=== PATIENT | female | born 1965 | race Caucasian/White ===

== ENCOUNTER → 2017-01-28 | Outpatient (CLI) | payer OTHER ==
[~2017-01-28] MED LIST: ANAS1TAB6 PO; CALC1TAB27 PO; CHOL2000 PO; CLC100 PO; COLLPOW10 PO; CORTISONE; Collagen PO; FERR1TAB23 PO; MILK150C PO; MULT-506 PO; OXYC7.5T65 PO
[2017-01-28 15:37] LABS: BASO % 0.6 %; BASO ABS # 0.04 K/uL (0-0.2); COMPLETE YES; EOS % 6.8 %; HEMATOCRIT 36.6 % (37-47); IG% 0.2 %; LYMPH % 40.8 %; LYMPH ABS # 2.64 K/uL (1.2-3.4); MEAN CORPUSCULAR HEMOGLOBIN 31.9 pg (25-34); MEAN CORPUSCULAR HGB CONC 34.7 g/dl (32-36); MEAN PLATELET VOLUME 9.2 fL (7.4-10.4); MONO % 6.2 %; NEUT % 45.4 %; PLATELET COUNT 230 K/uL (130-400); RED BLOOD COUNT 3.98 M/uL (4.2-5.4); WHITE BLOOD COUNT 6.47 K/uL (4.8-10.8)
--- NOTE | 2017-01-28 15:41 | DIAGNOSTIC IMAGING REPORT ---
L-SPINE MIN 4 VIEWS ROUTINE CLINICAL HISTORY: Chronic back pain. COMPARISON: CT of the abdomen and pelvis January 03, 2011. FINDINGS: A left renal artery stent is incidentally noted. Alignment of the lumbar spine is anatomic. Vertebral body heights are maintained. There is mild disc space narrowing at L5-S1. IMPRESSION: 1. No lumbar spine fracture or subluxation. 2. Mild multilevel degenerative disc disease and facet arthrosis, most pronounced at L5-S1. Electronically signed by: Epifanio Mims M.D. 01/28/2017 3:39 PM Dictated Date/Time: 01/28/2017 3:38 PM
[2017-01-28 16:02] LABS: ALT/SGPT 18 U/L (12-78); BLOOD UREA NITROGEN 19 mg/dl (7-18); BUN/CREATININE RATIO 17.5 (10-20); CALCIUM 9.4 mg/dl (8.5-10.1); CARBON DIOXIDE 27 mmol/L (21-32); CHLORIDE 107 mmol/L (98-107); GLUCOSE 93 mg/dl (70-99); POTASSIUM 3.7 mmol/L (3.5-5.1); SODIUM 143 mmol/L (136-145)
[2017-01-28 16:13] LABS: ALB/GLOB RATIO 1.1 (0.9-2); ALKALINE PHOSPHATASE 43 U/L (45-117); AST/SGOT 16 U/L (15-37); THYROID STIMULATING HORMONE 0.791 uIu/ml (0.300-4.500)
== END | disposition home or self-care (01) ==
LOC: C.RAD1850 14:56
PROVIDERS: ATTEND Family Medicine
DX: M54.9 Dorsalgia, unspecified (principal)

== ENCOUNTER → 2017-02-02 | Outpatient (CLI) | payer OTHER ==
--- NOTE | 2017-02-02 16:46 | MAMMOGRAPHY REPORT ---
BILATERAL DIGITAL DIAGNOSTIC MAMMOGRAM TOMOSYNTHESIS WITH CAD AND TARGETED BILATERAL ULTRASOUND: 01/23 CLINICAL HISTORY: 51-year-old woman presents for bilateral screening mammography and also new episod es of right nipple discharge. The patient reported a whitish/milky discharge she was able to elicit from the right nipple approximately 3-4 weeks ago, and then a second similar episode. No new palpa ble mass, or skin changes. No family history of breast cancer. TECHNIQUE: Bilateral CC and MLO to the digital and tomosynthesis images, spot magnification right CC and ML, spot compression 2-D digital and tomosynthesis left MLO views were obtained. Current study was also evaluated with a Computer Aided Detection (CAD) system. COMPARISON: Comparison is made to exams dated: 07/07/2013 ultrasound and 06/27/2013 mammogram - [facility]. BREAST COMPOSITION: The tissue of both breasts is extremely dense, which lowers the sensitivity of mammography. FINDINGS: There is a stable 2 cm circumscribed mass with associated internal layering calcification in the lower inner quadrant of the left breast. There are diffuse bilateral punctate microcalcific ations, without evidence of a focal suspicious grouping or cluster. There is spiculation and eric ectural distortion in the far superior, far posterior left breast on the MLO view, for which an jeuss tional spot compression MLO view with tomosynthesis images was performed. On this additional view, there is a spiculated mass measuring approximately 14 x 12 mm. Further evaluation with ultrasound w as performed. Several morphologically normal lobulated and reniform shaped lucent centered lymph no bill are seen on the spot compression MLO view that appear morphologically normal. Real-time high-resolution ultrasound was performed in the periareolar and retroareolar right breast. There is evidence of mild duct ectasia, but no definite suspicious solid or cystic mass in the per iareolar or retroareolar right breast. No drainable fluid collection is identified. In the left 1:00 breast, 15-20 cm from the nipple, there is a spiculated hypoechoic shadowing mass w ith associated architectural distortion, measuring approximately 8.3 x 10.6 mm. Given the ill-defin ed nature accurate measurements are difficult to obtain. Several morphologically normal lymph nodes are seen in the adjacent left axillary tail and left axilla, without evidence of suspicious adenopa thy. Additional scanning closer to the nipple in the 1:00 radian of the left breast demonstrates an other ill-defined hypoechoic shadowing area, approximately 9 cm from the nipple. However, all of th e dense glandular tissue throughout the visualized left breast on ultrasound demonstrates ill-define d shadowing areas. This lesion partially effaces in the radial plane and IM unsure if this is an ar tifactual finding. Therefore, pending pathology results, an MRI may be needed. IMPRESSION: ACR BI-RADS CATEGORY 4C: MODERATE SUSPICION FOR MALIGNANCY, TARGETED ULTRASOUND ACR BI- RADS CATEGORY 4C: MODERATE SUSPICION FOR MALIGNANCY 1. There is no obvious mammographic or sonographic abnormality to explain the nonspontaneous thick, milky right nipple discharge. Surgical consultation for sampling of the fluid may be useful. Alte rnatively, a breast MRI could be useful for further characterization and to assess for any possible intraductal mass but is not mammographically or sonographically evident. 2. There is a spiculated mass with associated architectural distortion in the 1:00 far posterior le ft breast that is suspicious for malignancy. Definitive characterization with an ultrasound guided core needle biopsy is recommended. 3. No suspicious left axillary lymphadenopathy is identified. 4. Another ill-defined hypoechoic shadowing area is seen in the 1:00 left breast approximately 9 cm from the nipple that is indeterminate. Pending pathology results in the 1:00 breast, 15 cm from th e nipple, if this lesion proves to be malignant, a bilateral breast MRI is recommended given the torie hnically difficult ultrasound and extremely dense breasts mammographically. These results and recommendations were discussed with the patient at the time of the exam. She tent atively schedule the left breast biopsy prior to leaving our department. Approximately 10% of breast cancers are not detected with mammography. A negative mammographic repor t should not delay biopsy if a clinically suggestive mass is present. Cynthia Tristan M.D. ay/:02/02/2017 15:30:49 Bee Robber: Renee PRITCHARD)(M), [facility] letter sent: Abnormal 4/5 BI-RADS Code: ACR BI-RADS Category 4C: Moderate Suspicion For Malignancy Ultrasound BI-RADS: ACR BI -RADS Category 4C: Moderate Suspicion For Malignancy
== END | disposition home or self-care (01) ==
LOC: C.MAMM 14:06
PROVIDERS: ATTEND Family Medicine
DX: N64.52 Nipple discharge (principal); N63 Unspecified lump in breast

== ENCOUNTER → 2017-02-03 | Outpatient (CLI) | payer OTHER ==
--- NOTE | 2017-02-03 15:26 | Discharge Instructions ---
Discharge Instructions Procedure Procedure Date: Feb 03, 2017. Reason for visit: Left Mass. Discharge Discharge Date: Feb 03, 2017. Discharge Diagnosis: post left breast ultrasound guided core biopsy Instructions Activity Recommendations: Additional Limitations (see below) Return to School/Work: no limitations Recommended Home Diet: No Limitations Provider Instructions: ACTIVITY RECOMMENDATIONS: * No lifting, pushing, pulling or exercising the affected side for three days. RETURN TO SCHOOL/WORK: * You may return to work/school after the procedure, but do not perform any strenuous activities for 24 to 48 hours. MEDICATIONS: * Tylenol (two 325 mg) every four to six hours if needed for mild pain (if not allergic to Tylenol). DIET: * Resume previous diet. SPECIAL CARE INSTRUCTIONS: * Keep biopsy site dry for 24 hours. May shower after 24 hours, but do not soak (bathe) incision. * May remove Tegaderm (plastic patch) tomorrow AFTER showering. * Leave the steri-strips on for one week. Allow the steri-strips to fall off by themselves. If not off after one week, you may remove them. You may place a Bandaid crosswise over the strips, if desired. * Apply ice 10 minutes on and 10 minutes off as needed. * Wear a bra at bedtime to sleep more comfortably for 2-3 days. * Your referring physician should have the results after approximately 5 to 7 business days. * Call for unusual bleeding, fever, drainage, etc or if you have any questions call [phone] during normal business hours or after hours call Dr Tristan, . FOLLOW UP VISIT: Follow-up with Referring Physician as scheduled. Allergies Coded Allergies: No Known Allergies (Unverified , 12/16/10) hCerelle Dotson Recommendations: Call your doctor if: * Temperature above 101 degrees * Pain not relieved by pain medicine ordered * There is increased drainage or redness from any incision * You have any unanswered questions or concerns. Your Doctors Instructions noted above were prepared by provider Cynthia Tristan. Patient Signature Section: Patient Instructions Signature Page Sona Mitchell Patient (or Guardian) Signature/Date: I have read and understand the instructions given to me by my caregivers. Caregiver/RN/Doctor Signature/Date: The above-named patient and/or guardian has received patient instructions on this date. + Original Patient Signature Page (only) stays with chart. Please make copy for patient.
--- NOTE | 2017-02-03 16:06 | MAMMOGRAPHY REPORT ---
THIS REPORT HAS BEEN AMENDED. ULTRASOUND GUIDED BIOPSY LEFT BREAST: 02/03/2017 CLINICAL HISTORY: Ill-defined spiculated mass in the left axillary tail. Patient presents for ultra sound-guided core needle biopsy. COMPARISON: Comparison is made to exams dated: 02/02/2017 ultrasound, 02/02/2017 mammogram, 07/07/2013 ultrasound, and 06/27/2013 mammogram - [facility]. PATIENT CONSENT: The procedure, risks and benefits were discussed with the patient and informed writ ten consent was obtained. Specific risks to this procedure include: bleeding, infection, puncture of adjacent structure, nontarget biopsy, sampling error and medication reaction. PROCEDURE DESCRIPTION: A time out was performed and the left breast was agreed as the site of biopsy . The skin was prepped and draped in the usual sterile fashion. The ill-defined spiculated shadowing mass in the 1:00 left breast/axillary tail was chosen as the target for biopsy. Subcutaneous and in traparenchymal 1% buffered lidocaine, with and without epinephrine, was administered as local anesth esia. A skin incision was made. Through the incision, 5 samples were taken with a 14 gauge Achieve biopsy device. A metallic marker was placed at the biopsy site. Hemostasis was achieved after manual compression. The patient tolerated the procedure well and there was no immediate complication. The samples were sent to pathology in an appropriately labeled container. Post procedure left CC, XCCL and ML views were obtained. A new ribbon-shaped metallic biopsy marker is seen in the axillary tail of the left breast, aligning with the spiculated mammographic mass in question. No significant post biopsy hematoma is seen. IMPRESSION: ULTRASOUND GUIDED BIOPSY Status post ultrasound guided core needle biopsy of an ill-defined spiculated shadowing mass in the left axillary tail/1:00 breast, with biopsy marker placed at the site. The patient will receive notification of the biopsy results from her referring physician. Cynthia Tristan M.D. ay/:02/03/2017 15:45:46 Grant Specialist: Lucia EARLY (R)(Sasha), [facility] AMENDMENT: 02/09/2017 Cynthia Tristan M.D. Pathology results from the ultrasound guided core needle biopsy of a cyst this shows spiculated shad owing mass in the 1:00 left breast yielded infiltrating ductal carcinoma, grade 1/3. No perineural or lymph vascular space invasion identified. Estrogen receptor positive (100%, strong) and progeste arabella receptor positive (5%, weak). The pathology results are concordant with the imaging appearance . Given the extremely dense breasts, and recent new finding of right sided/contralateral nipple dis charge, in which diagnostic workup failed to identify any abnormality mammographically or sonographi kisha, recommend bilateral breast MRI with contrast prior to definitive treatment. These recommenda tions were discussed with Dr. Flanagan at 3:40 PM on 02/09/2017.
--- NOTE | 2017-02-03 16:06 | MAMMOGRAPHY REPORT ---
UNILATERAL LEFT DIGITAL DIAGNOSTIC MAMMOGRAM TOMOSYNTHESIS: 02/03/2017 CLINICAL HISTORY: Status post ultrasound-guided core needle biopsy of a suspicious spiculated mass i n the left axillary tail/1:00 axis. Please refer to the report from left breast ultrasound guided core biopsy performed at the same time for full detail. IMPRESSION: POST PROCEDURE IMAGING FOR MARKER PLACEMENT Please refer to the report from left breast ultrasound guided core biopsy performed at the same time for full detail. Approximately 10% of breast cancers are not detected with mammography. A negative mammographic repor t should not delay biopsy if a clinically suggestive mass is present. Cynthia Tristan M.D. ay/:02/03/2017 15:27:50 Helicopter Pilot Instructor: Lucia EARLY(Mag)(Sasha), [facility] BI-RADS Code: Post Procedure Imaging For Marker Placement
== END | disposition home or self-care (01) ==
LOC: C.MAMM 14:18
PROVIDERS: ATTEND Family Medicine
DX: N63 Unspecified lump in breast (principal); C50.912 Malignant neoplasm of unspecified site of left female breast

== ENCOUNTER → 2017-02-19 | Outpatient (CLI) | payer OTHER ==
[~2017-02-19] MED LIST changes: +GADAVIST IV PRN
--- NOTE | 2017-02-22 12:25 | MAMMOGRAPHY REPORT ---
BREAST MRI OF BOTH BREASTS : 02/19/2017 CLINICAL HISTORY: Recent ultrasound-guided biopsy of a left 1:00 breast mass, with pathology yieldin g IDC grade 1. The patient also reported milky right nipple discharge during a recent diagnostic wo rkup. COMPARISON: Comparison is made to exams dated: 02/03/2017 mammogram, 02/03/2017 ultrasound biopsy, 08/2017 ultrasound, 02/02/2017 mammogram, 07/07/2013 ultrasound, and 06/27/2013 mammogram - [facility]. Technique: The patient was placed prone in a dedicated breast imaging coil. Precontrast axial T1-we ighted, axial T2-weighted fat saturation, and axial T1-weighted fat saturation images were obtained. After the administration of 6.5 mL of Gadavist IV contrast, sequential T1-weighted fat saturation images were obtained. Subtraction images were obtained of the dynamic contrast enhanced sequences, and 3-D reformations were performed. The [employer] software was used for kinetic analysis. Findings: There is moderate background parenchymal enhancement bilaterally, which reduces the sensitivity of t he exam. A subtle ill-defined, minimally enhancing, spiculated mass is seen within the left upper o uter quadrant posterior breast/axillary tail region, with clip artifact seen within the mass. The m ass is ill-defined and difficult to measure but measures approximately 1.5 x 1.6 cm (series 6 images 15 and 16, series 501 image 43). This is consistent with the recent biopsy proven malignancy. The remainder of both breasts demonstrate no suspicious enhancing masses or areas of abnormal non-ma ss enhancement. There are multiple foci of enhancement seen scattered within bilateral breasts, whi ch are considered benign given the multiplicity and bilaterality and likely represent background par enchymal enhancement. There are multiple T2 hyperintense, nonenhancing masses seen within bilateral breasts, consistent with cysts, the largest measuring 2.2 cm in the left lower inner quadrant. The re is T1 hyperintense material seen within some of the ducts within the right breast, predominantly inferiorly, which likely represents proteinaceous material. Some scattered ducts within the left br east also demonstrate T1 hyperintense proteinaceous material. No clear enhancing intraductal mass o r other etiology for right milky nipple discharge is evident. There is no evidence of axillary adenopathy. The chest wall structures are negative. Visualized ex tramammary soft tissues are grossly unremarkable. IMPRESSION: ACR BI-RADS CATEGORY 6: KNOWN BIOPSY PROVEN MALIGNANCY 1. Ill-defined, minimally enhancing spiculated 1.6 cm mass in the left posterior upper outer quadra nt/axillary tail region, consistent with biopsy-proven malignancy. Appropriate clinical action shou ld be taken. 2. No MRI evidence of malignancy elsewhere in either breast. 3. No clear enhancing intraductal mass or other etiology for the right milky nipple discharge is ev ident. Recommend clinical follow-up. Ilda Greenwood M.D. ah/:02/21/2017 11:22:21 Post Acute Care Nurse: photovoltaic installation technician, [facility] BI-RADS Code: ACR BI-RADS Category 6: Known Biopsy Proven Malignancy
== END | disposition home or self-care (01) ==
LOC: C.MRI 09:22
PROVIDERS: ATTEND Family Medicine
DX: C50.912 Malignant neoplasm of unspecified site of left female breast (principal); N64.52 Nipple discharge

== ENCOUNTER → 2017-03-18 | Outpatient (CLI) | payer OTHER ==
[~2017-03-18] MED LIST changes: -GADAVIST IV PRN
[2017-03-18 12:06] LABS: HEMATOCRIT 38.7 % (37-47); MEAN CELL VOLUME 95.1 fL (80-100); MEAN CORPUSCULAR HEMOGLOBIN 32.2 pg (25-34); MEAN CORPUSCULAR HGB CONC 33.9 g/dl (32-36); MEAN PLATELET VOLUME 9.1 fL (7.4-10.4); PLATELET COUNT 283 K/uL (130-400); RED BLOOD COUNT 4.07 M/uL (4.2-5.4); WHITE BLOOD COUNT 6.17 K/uL (4.8-10.8)
[2017-03-18 12:09] LABS: BLOOD UREA NITROGEN 15 mg/dl (7-18); BUN/CREATININE RATIO 14.6 (10-20); CARBON DIOXIDE 28 mmol/L (21-32); CHLORIDE 105 mmol/L (98-107); GLUCOSE 96 mg/dl (70-99); POTASSIUM 3.9 mmol/L (3.5-5.1); SODIUM 140 mmol/L (136-145)
[2017-03-18 12:10] LABS: PHOSPHORUS 2.9 mg/dl (2.5-4.9)
[2017-03-18 12:11] LABS: CALCIUM 9.7 mg/dl (8.5-10.1)
[2017-03-18 13:07] LABS: URINE APPEARANCE CLEAR (CLEAR); URINE BILIRUBIN NEG (NEG); URINE COLOR YELLOW; URINE NITRITE NEG (NEG); URINE PH 6.5 (4.5-7.5); URINE SPECIFIC GRAVITY 1.008 (1.000-1.030); UROBILINOGEN NEG (NEG)
[2017-03-18 13:12] LABS: MANUAL MICROSCOPIC REQUIRED? NO; REVIEW REQ? NO
[2017-03-18 13:30] LABS: URINE TOTAL PROTEIN < 5.0 mg/dl (0-11.9)
== END | disposition home or self-care (01) ==
LOC: C.LAB1850 10:21
PROVIDERS: ATTEND Internal Medicine Nephrology
DX: I77.73 Dissection of renal artery (principal); N18.3 Chronic kidney disease, stage 3 (moderate)

== ENCOUNTER → 2017-07-06 | Outpatient (CLI) | payer OTHER ==
[~2017-07-06] MED LIST changes: -CLC100 PO; -OXYC7.5T65 PO
[2017-07-06 14:25] VITALS: BP 104/67; PULSE 70; TEMP 36.9; O2SAT 95
--- NOTE | 2017-07-06 15:53 | Radiation Oncology Follow-Up ---
Radiation Oncology Follow-Up Date of Visit Jul 06, 2017. Reason For Visit One-month follow-up in cancer survivorship care plan Radiation Completion Date Hypo - 06/04/17 Diagnosis (1) Breast cancer Status: Acute Onset Date: 02/03/2017 Histology Subtype: ductal Stage: l (A) Permanent Comment: Development of a white nipple discharge on the right breast Status post abnormal left breast mammogram 02/02/2017 Status post core needle biopsies 02/03/2017 revealing invasive ductal carcinoma grade 1 Estrogen receptor was positive, progesterone receptor positive, and HER-2/karen negative Status post partial mastectomy and sentinel lymph node biopsy 02/26/2017 Stage pT1c pN0 positive lateral deep margin Status post reexcision 03/18/2017, benign Oncotype DX score of 16 Status post completion of radiation therapy 06/04/2017. She received 5130 cGy utilizing hypo-fractionation. Last Edited By: Tamika Vera on Jun 10, 2017 10:32 History of Present Illness Ms. Mitchell is a 52-year-old perimenopausal female with a previous history of nipple discharge from her right breast to more recently presented with right breast nipple discharge again. The patient underwent a bilateral digital mammogram with targeted ultrasound on 02/02/2017 which revealed no evidence of disease in the right breast but did reveal a spiculated mass with associated architectural distortion in the 1 o'clock position of the left breast suspicious for malignancy; ultrasonography did confirm an ill-defined hypoechoic shadowing area seen in the left breast approximately 9 cm from the nipple that is indeterminate. The patient underwent an ultrasound-guided core biopsy of the left breast 1:00 lesion on 02/03/2017 and pathology revealed invasive ductal carcinoma that was grade 1 with no evidence of perineural invasion or lymphovascular space invasion; the tumor was estrogen receptor positive, progesterone receptor positive and HER-2 negative. The patient was seen by Dr. Farhat Hong from breast surgery who discussed treatment options including mastectomy and lumpectomy/SLN. The patient elected for a lumpectomy and sentinel lymph node biopsy with Dr. Farhat Hong. 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 The tumor measured 2.0 cm in the greatest dimension. The lateral deep margin was positive for invasive carcinoma and negative for DCIS in general. 3 sentinel lymph nodes were removed and negative for metastatic carcinoma. Dr. Hong brought the patient back to the operating room on 03/18/2017 to obtain negative margins. Pathology confirmed no evidence of residual disease and changes consistent with previous biopsy confirming negative margins in general. The patient did have an Oncotype DX study sent on her surgical specimen and the recurrence score was 16 placing her in the low risk category. The patient was seen in consultation by Dr. Tushar Barron from medical oncology who discussed and recommended anti-hormonal therapy alone. The patient has agreed to undergo anti-hormonal therapy. We are now seeing the patient in consultation to discuss the role of radiation therapy. In general, the patient is doing relatively well. The patient has no significant complaints. She underwent a CT simulation. She was found to be a candidate for hypo- fractionation. Radiation was completed 06/04/2017. She received 5130 cGy. Interim History She's been doing well over the past month. Skin irritation steadily improved. She's been seen by medical oncology and was started on antiestrogen therapy. She does have a side effect of joint pain and hot flashes. She is noted no masses on her breast. She has no tenderness and no change of the axilla. Allergies Coded Allergies: Morphine (Verified Allergy, Mild, GI SYMPTOMS - nausea, 04/14/17) Home Medications Scheduled Anastrozole (Anastrozole), 1 TAB PO DAILY Dcixukv-Dntxgmeca-Bbnc (Calcium Magnesium & Zinc), 1 TAB PO DAILY Cholecalciferol (Vitamin D3), 1 CAP PO DAILY Collagen Hydrolysate (Bovine) (Collagen Hydrolysate), 1 TSP PO DAILY Ferrous Sulfate (Iron), 1 TAB PO DAILY Milk Thistle (Silybum Marianum (Milk Thistle), 1 CAP PO DAILY Multivitamin (Multivitamin), 1 TAB PO DAILY [Collagen ], 2 TAB PO HS Review of Systems Gastrointestinal: Symptoms: WNL Oral: Symptoms: No Problems Respiratory: Symptoms: WNL Urinary: Symptoms: WNL Skin: Symptoms: No Problems Other Skin Symptoms: Reports harder lump under scar area Breast: Right Upper Arm Measurement: 27.0 Right Mid Arm Measurement: 23.1 Right Wrist Measurement: 15.5 Left Upper Arm Measurement: 28.4 Left Mid Arm Measurement: 23.0 Left Wrist Measurement: 15.5 Arm Dominence: Right Additional Notes: She completed a distress management report and answered "no" to all questions. Physical Exam Vital Signs Date Time Temp Pulse Resp B/P (MAP) Pulse Ox O2 Delivery O2 Flow Rate FiO2 07/06/17 14:25 36.9 70 16 104/67 95 Fatigue: None General Appearance: no apparent distress Eyes: normal inspection, PERRL ENT: normal ENT inspection, hearing grossly normal Neck: no adenopathy, thyroid normal Respiratory/Chest: lungs clear, no respiratory distress, no accessory muscle use Breast: Breast examination reveals well-healed incisions of the left breast. There are no masses or tenderness and no axillary adenopathy. There is mild dryness of the skin generally. She has no skin retractions or nipple changes. Using the [place] score cosmesis she has a in excellent outcome. The right breast showed no masses or tenderness and no axillary adenopathy. Cardiovascular: regular rate, rhythm, no gallop, no murmur Extremities: no pedal edema Neurologic/Psychiatric: no motor/sensory deficits, alert, normal mood/affect Skin: warm/dry Assessment & Plan Plan: She was seen and examined by Dr. Celestin. Continue regular follow-up with Dr. Hong, Dr. Barron, and her primary care physician. She continues on the antiestrogen therapy. Mammography was scheduled for the left breast in 2 months and then bilateral mammography in 8 months. We discussed that the easily digital diagnostic mammograms. She'll have imaging of the left breast every 6 months for 2 years. We completed a cancer survivorship care plan. A copy of the document was given to the patient. We asked her to return to our office in 6 months. She may call if she has any questions or concerns in the interim. Assessment & Plan (Attending) ADDENDUM: I agree with note created by Tamika Vera PA-C. I reviewed the patient's chart and information with her. I have examined and evaluated the patient. I reviewed relevant clinical information and answered the patient's and /or family's questions. BINDER TECHNICIAN Total Time In Follow-Up I spent 20 minutes speaking to the patient performing examination. I spent 20 minutes reviewing information, preparing the survivorship document, and completing this note. Total Time (Attending) In Follow-Up I spent 15 minutes examining and counseling the patient. BINDER TECHNICIAN Copy To Farhat Hong M.D.; Tushar Barron MD; Yina Flanagan, Problem Qualifiers (1) Breast cancer: Breast location: upper outer quadrant of breast Estrogen receptor status: positive Patient sex: female Laterality: left Qualified Codes: C50.412 - Malignant neoplasm of upper-outer quadrant of left female breast; Z17.0 - Estrogen receptor positive status [ER+]
== END | disposition home or self-care (01) ==
LOC: C.ONC 14:22
PROVIDERS: ATTEND Physician Assistant Medical
DX: Z08 Encounter for follow-up examination after completed treatment for malignant neoplasm (principal); Z92.3 Personal history of irradiation; Z85.3 Personal history of malignant neoplasm of breast

== ENCOUNTER → 2017-09-21 | Outpatient (CLI) | payer OTHER ==
[~2017-09-21] MED LIST changes: -CORTISONE
--- NOTE | 2017-09-22 13:44 | MAMMOGRAPHY REPORT ---
UNILATERAL LEFT DIGITAL DIAGNOSTIC MAMMOGRAM TOMOSYNTHESIS WITH CAD AND TARGETED LEFT ULTRASOUND: CLINICAL HISTORY: 52-year-old woman with a personal history of left breast cancer status post lumpect jim and radiation therapy. She presents for first follow-up in the left breast after treatment to [facility]. Also patient reports a ridge of thickening along the lower inner quadrant of t he left breast and also sometimes abnormal sensation in the left nipple. TECHNIQUE: Left breast tomosynthesis in addition to standard 2D mammography was performed. Current st udy was also evaluated with a Computer Aided Detection (CAD) system. COMPARISON: Comparison is made to exams dated: 02/19/2017 breast MRI, 02/03/2017 mammogram, 02/03/2017 ultrasound biopsy, 02/02/2017 mammogram, and 06/27/2013 mammogram - [facility]. BREAST COMPOSITION: The tissue of the left breast is extremely dense, which lowers the sensitivity o f mammography. FINDINGS: There is expected architectural distortion in the upper outer far posterior left breast, at the site of prior lumpectomy. There is also mild diffuse skin thickening and trabecular edema of th e left breast, likely related to prior radiation therapy. The previously observed spiculated mass an d associated biopsy marker clip is no longer present consistent with surgical excision. No new suspi cious masses, unexpected areas of distortion or new suspicious macrocalcifications are identified in left breast. Targeted ultrasound was performed in the lower inner quadrant of the left breast in the approximate 7 :00 axes to assess the area of palpable ridge pointed out by the patient. There is diffuse skin thic kening throughout the 7:00 axes of the left breast, with focal skin thickness measuring up to 4.7 mm. A benign anechoic cyst is identified in the 7:00 breast, 4 cm from the nipple, measuring 2.1 x 0.8 x 1.4 cm, and there is an adjacent oval circumscribed hypoechoic solid versus cystic mass slightly de eper than the cyst measuring 8.6 x 6.1 mm. Although this has a benign sonographic appearance, given that it is newly visualized on ultrasound, and a short interval follow-up targeted left breast ultras ound in the 7:00 axis is recommended at time of next follow-up in 6 months. IMPRESSION: ACR-BI-RADS CATEGORY 3: PROBABLY BENIGN, TARGETED ULTRASOUND ACR-BI-RADS CATEGORY 3: PRO BABLY BENIGN Expected post treatment changes in the left breast, without definite mammographic evidence of maligna ncy. A benign-appearing circumscribed subcentimeter solid versus cystic mass is incidentally identif ied in the 7:00 left breast on ultrasound, for which a repeat targeted ultrasound is recommended to e nsure stability in 6 months. Overall, recommend repeat left diagnostic tomosynthesis mammograms and ultrasound in 6 months to ensu re longer stability after treatment. Annual right mammography will also be due at that time. Would also recommend continued annual surveillance with breast MRI given the personal history of left breas t cancer and extremely dense breast parenchyma, also due in January 2018. Approximately 10% of breast cancers are not detected with mammography. A negative mammographic report should not delay biopsy if a clinically suggestive mass is present. Cynthia Tristan M.D. ay/:09/21/2017 14:57:21 Turbine Mechanic: Amanda PRITCHARD)(Sasha), [facility] letter sent: Follow Up Recommended 3 BI-RADS Code: ACR-BI-RADS Category 3: Probably Benign Ultrasound BI-RADS: ACR-BI-RADS Category 3: Pr obably Benign
== END | disposition home or self-care (01) ==
LOC: C.MAMM 14:05
PROVIDERS: ATTEND Physician Assistant Medical
DX: N63.20 Unspecified lump in the left breast, unspecified quadrant (principal); Z85.3 Personal history of malignant neoplasm of breast; Z98.890 Other specified postprocedural states; Z92.3 Personal history of irradiation; Z08 Encounter for follow-up examination after completed treatment for malignant neoplasm

== ENCOUNTER → 2017-09-22 | Outpatient (CLI) | payer OTHER ==
[2017-09-22 12:15] LABS: HEMATOCRIT 39.9 % (37-47); MEAN CELL VOLUME 94.8 fL (80-100); MEAN CORPUSCULAR HEMOGLOBIN 32.1 pg (25-34); MEAN CORPUSCULAR HGB CONC 33.8 g/dl (32-36); MEAN PLATELET VOLUME 9.6 fL (7.4-10.4); PLATELET COUNT 224 K/uL (130-400); RED BLOOD COUNT 4.21 M/uL (4.2-5.4)
[2017-09-22 12:31] LABS: ALT/SGPT 21 U/L (12-78); BLOOD UREA NITROGEN 21 mg/dl (7-18); BUN/CREATININE RATIO 21.3 (10-20); CALCIUM 9.5 mg/dl (8.5-10.1); CARBON DIOXIDE 25 mmol/L (21-32); CHLORIDE 105 mmol/L (98-107); CHOLESTEROL 225 mg/dl (0-200); CREATININE 0.96 mg/dl (0.60-1.20); GLUCOSE 97 mg/dl (70-99); POTASSIUM 3.9 mmol/L (3.5-5.1); SODIUM 138 mmol/L (136-145); TRIGLYCERIDES 65 mg/dl (0-150); VERY LOW DENSITY LIPOPROT CALC 13 mg/dl
[2017-09-22 12:34] LABS: ALB/GLOB RATIO 1.2 (0.9-2); ALKALINE PHOSPHATASE 45 U/L (45-117); AST/SGOT 21 U/L (15-37); CHOLESTEROL/HDL RATIO 3.8; HDL CHOLESTEROL 59 mg/dl; LDL CHOLESTEROL CALCULATED 153 mg/dl
[2017-09-22 12:46] LABS: URINE APPEARANCE CLEAR (CLEAR); URINE BILIRUBIN NEG (NEG); URINE COLOR YELLOW; URINE EPITHELIAL CELL AUTO >30 /lpf (0-5); URINE NITRITE NEG (NEG); UROBILINOGEN NEG (NEG)
[2017-09-22 12:49] LABS: MANUAL MICROSCOPIC REQUIRED? NO; REVIEW REQ? YES
[2017-09-22 13:02] LABS: URINE PROTIEN/CREAT RATIO 0.1 (0-0.2); URINE TOTAL PROTEIN 8.7 mg/dl (0-11.9)
== END | disposition home or self-care (01) ==
LOC: C.LAB1850 09:43
PROVIDERS: ATTEND Internal Medicine Nephrology
DX: N28.0 Ischemia and infarction of kidney (principal); Z90.5 Acquired absence of kidney; N18.2 Chronic kidney disease, stage 2 (mild)

== ENCOUNTER → 2017-10-22 | Outpatient (CLI) | payer OTHER ==
[~2017-10-22] MED LIST changes: -ANAS1TAB6 PO; +ANAS1TAB7 PO
--- NOTE | 2017-10-22 17:25 | DIAGNOSTIC IMAGING REPORT ---
HEAD WITHOUT CONTRAST (CT) CLINICAL HISTORY: 52 years-old Female presenting with HEAD TRAUMA, struck the back of the head 10 days ago. TECHNIQUE: Multidetector CT imaging of the head was performed without the use of intravenous contrast. IV contrast: None. A dose lowering technique was used consistent with the principles of ALARA (as low as reasonably achievable). COMPARISON: None. CT DOSE (mGy.cm): The estimated cumulative dose is 537.48 mGy.cm. FINDINGS: Groundskeeper Supervisor topogram: Unremarkable. Ventricles and sulci normal in size. Brain parenchyma normal in appearance with preserved hunt-white differentiation. No mass effect or midline shift. No hemorrhage or acute territorial infarct. No extra-axial fluid collection. Paranasal sinuses and mastoid air cells clear. Calvarium intact. IMPRESSION: 1. No acute intracranial abnormality. Electronically signed by: Mauro Newby M.D. 10/22/2017 5:24 PM Dictated Date/Time: 10/22/2017 5:22 PM
== END | disposition home or self-care (01) ==
LOC: C.CTS 17:01
PROVIDERS: ATTEND Internal Medicine Hematology & Oncology
DX: S09.90XA Unspecified injury of head, initial encounter (principal); X58.XXXA Exposure to other specified factors, initial encounter

== ENCOUNTER → 2018-05-17 | Outpatient (CLI) | payer OTHER ==
[2018-05-17 15:38] LABS: HEMATOCRIT 37.3 % (37-47); HEMOGLOBIN 12.6 g/dL (12.0-16.0); MEAN CELL VOLUME 94.2 fL (80-100); MEAN CORPUSCULAR HEMOGLOBIN 31.8 pg (25-34); MEAN CORPUSCULAR HGB CONC 33.8 g/dl (32-36); MEAN PLATELET VOLUME 9.1 fL (7.4-10.4); PLATELET COUNT 253 K/uL (130-400); RED CELL DISTRIBUTION WIDTH CV 13.5 % (11.5-14.5); RED CELL DISTRIBUTION WIDTH SD 46.6 fL (36.4-46.3); WHITE BLOOD COUNT 6.75 K/uL (4.8-10.8)
[2018-05-17 16:06] LABS: ALBUMIN 4.1 gm/dl (3.4-5.0); ALKALINE PHOSPHATASE 45 U/L (45-117); ALT/SGPT 23 U/L (12-78); AST/SGOT 20 U/L (15-37); BLOOD UREA NITROGEN 29 mg/dl (7-18); CALCIUM 9.7 mg/dl (8.5-10.1); CARBON DIOXIDE 27 mmol/L (21-32); CREATININE 1.23 mg/dl (0.60-1.20); GLUCOSE 99 mg/dl (70-99); POTASSIUM 3.7 mmol/L (3.5-5.1); SODIUM 143 mmol/L (136-145); TOTAL PROTEIN 7.5 gm/dl (6.4-8.2)
== END | disposition home or self-care (01) ==
LOC: C.LAB1850 14:43
PROVIDERS: ATTEND Internal Medicine Nephrology
DX: I77.73 Dissection of renal artery (principal); N28.0 Ischemia and infarction of kidney; N18.2 Chronic kidney disease, stage 2 (mild); Z90.5 Acquired absence of kidney

== ENCOUNTER → 2018-06-06 | Outpatient (CLI) | payer OTHER | END | disposition home or self-care (01) | LOC: C.PAPS 13:51 | PROVIDERS: ATTEND Obstetrics & Gynecology | DX: Z12.4 Encounter for screening for malignant neoplasm of cervix (principal) ==

== ENCOUNTER → 2018-06-16 | Outpatient (CLI) | payer OTHER ==
[~2018-06-16] MED LIST changes: +GADAVIST IV PRN
--- NOTE | 2018-06-20 13:56 | MAMMOGRAPHY REPORT ---
BREAST MRI OF BOTH BREASTS: 06/16/2018 CLINICAL HISTORY: History of left breast cancer status post lumpectomy February 2017 as well as radiation therapy. The patient presents for screening bilateral breast MRI. The patient reported to the technol ogist that she has intermittent sharp pain in the left breast for the last few weeks. COMPARISON: Comparison is made to exams dated: 02/19/2017 breast MRI, 02/03/2017 mammogram, 02/03/2017 ultrasound biopsy, 09/21/2017 mammogram, 02/02/2017 ultrasound, and 02/02/2017 mammogram - [facility]. Technique: The patient was placed prone in a dedicated breast imaging coil. Precontrast axial T1-jacques ghted, axial T2-weighted fat saturation, and axial T1-weighted fat saturation images were obtained. After the administration of 5.5 mL of Gadavist IV contrast, sequential T1-weighted fat saturation pierce ges were obtained. Subtraction images were obtained of the dynamic contrast enhanced sequences, and 3-D reformations were performed. The Carefx software was used for kinetic analysis. Findings: Right breast: There is mild background parenchymal enhancement. There are no suspicious enhancing ma sses or areas of abnormal non-mass enhancement within the right breast. A few scattered small circum scribed T2 hyperintense masses are noted, some of which demonstrate a thin rim of enhancement, consis tent with benign cysts. Left breast: There is mild background parenchymal enhancement. There are expected postsurgical jean-baptiste es in the left upper outer quadrant far posteriorly from prior lumpectomy. There is mild diffuse lef t breast skin thickening, likely related to radiation therapy. There is a focal 7 mm area of non-mas s enhancement within the left 230 to 3:00 breast middle depth, which demonstrates a persistent kineti c pattern (series [id number] image 73 and series 6 image 21). Recommend additional imaging evaluation wit h diagnostic mammograms and second look ultrasound. The remainder of the left breast demonstrates no suspicious enhancing masses or areas of abnormal non-mass enhancement. A circumscribed T2 hyperinte nse 15 mm mass with a thin rim of enhancement within the left lower outer quadrant anteriorly is cons istent with a cyst. There is no evidence of axillary adenopathy. The chest wall structures are negative. Visualized por tions of the extramammary soft tissues are grossly unremarkable. IMPRESSION: ACR BI-RADS CATEGORY 0: INCOMPLETE EVALUATION: NEED ADDITIONAL IMAGING EVALUATION 1. Expected postsurgical changes in the left upper outer quadrant from prior lumpectomy. A focal 7 mm area of non-mass enhancement is noted within the left 2:30 to 3:00 breast, for which additional im aging evaluation with diagnostic tomosynthesis mammograms and targeted ultrasound is recommended. An nual mammography of the right breast is overdue and can be performed at that time. 2. No MRI evidence of malignancy in the right breast. Ilda Greenwood M.D. ah/:06/18/2018 11:17:05 Straight Line Press Setter: ergonomics engineer, [facility] letter sent: Addl Imaging 0 BI-RADS Code: ACR BI-RADS Category 0: Incomplete Evaluation: Need Additional Imaging Evaluation
== END | disposition home or self-care (01) ==
LOC: C.MRI 15:53
PROVIDERS: ATTEND Physician Assistant Medical
DX: C50.412 Malignant neoplasm of upper-outer quadrant of left female breast (principal); N64.9 Disorder of breast, unspecified

== ENCOUNTER 2022-01-14 23:12 | Observation (INO) ==
[2022-01-14] MEDS ORDERED: SODIUM CHLORIDE 0.9% 500 ML IV STA (23:19)
--- NOTE | 2022-01-14 23:19 | Emergency Department Note ---
Impression & Plan Chest pain ADMIT ED Provider Note HPI: The patient is a 56-year-old female with history of ductal carcinoma of the left breast, chronic kidney disease, presents the emergency department with chief complaint of left-sided chest pain that is been ongoing throughout the day today. Patient describes the pain is relatively sharp in nature, states it does worsen with deep breathing. Patient denies any shortness of breath. On arrival to the ED the patient is hemodynamically stable, she is afebrile on presentation and saturating well on room air. ROS: -Cardio: Chest pain *10 point review systems was conducted and is otherwise negative unless stated above *Outpatient medications and allergy history reviewed PE: General: Alert, NAD HEENT: Normocephalic, atraumatic Eyes: Extraocular eye movement is intact, no scleral erythema Pulmonary: Clear to auscultation bilaterally, no wheezing Cardio: Regular rate and rhythm GI: Abdomen is soft, nontender : No suprapubic tenderness MSK: No evidence of trauma or malformation of the extremities, no edema Skin: No evidence of rash Neuro: Alert, no focal deficits Psychiatric: Cooperative monitor technician: - An order was placed for continuous cardiac monitoring - Patient was noted to be in sinus rhythm with rate of 80 CTA CHEST: Comparison: 02/08/2011. Mild posterior dependent atelectasis. Remainder of the lung parenchyma is normal. No pleural effusion or pneumothorax. Normal cardiac size. Unremarkable mediastinum. Mild atherosclerotic disease of aorta with no aneurysm or dissection. No pulmonary embolus. Visualized upper abdominal structures reveal no unusual density in the left paraspinal region, which may be extension of incompletely distended small bowel loop, volume averaging from pancreas or other structure and therefore incompletely characterized. Nonspecific degenerative disease of the spine. Radiologist: Gayla Beaulieu MD EKG: Rate: 91 Rhythm: Normal sinus rhythm Intervals: Within normal limits ST changes: No ST elevation Time: 2323 Medical Decision Making: Presented to the emergency department with a chief complaint of left-sided chest discomfort that had been ongoing throughout the day today. Patient states that the pain is constant but at times worsens in severity. She denies any worsening with exertion. Arrival here to the ED the patient is hemodynamically stable. She declines pain medication on presentation. Shortly after arrival IV was established, lab work obtained, patient was placed on panel monitor, initial EKG does not show any evidence of any acute ischemic changes or arrhythmia, troponin is negative x1, given the patient's history of breast cancer in addition to some pleuritic component to her pain I did obtain CT angiography that does not show any evidence of pulmonary embolism. On my reassessment the patient states that she still is having some intermittent pain. She does not remember the last time she had a stress test, she does have significant smoking history of greater than 20 pack years, given all of this I do think that she would benefit from admission for trending of cardiac enzymes and stress testing. Patient is in agreement to this. Case was discussed with the on-call admitting hospitalist service and the patient was admitted in stable condition for ACS rule out. Diagnosis: 1. Chest pain 2. 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 by [facility] 2010 Right renal stone Stage 2 chronic kidney disease Trigger finger Surgical History H/O tubal ligation History of colonoscopy History of dilatation and curettage History of kidney surgery left kidney stent placed, then later kidney removed History of left breast biopsy malignant History of left nephrectomy (~2010) History of lumpectomy of left breast Secondary Low grade DCIS, invasive mammary carcinoma, 02/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 History of wisdom tooth extraction S/P left knee arthroscopy S/P tubal ligation Family History Mother COPD (chronic obstructive pulmonary disease) Hypertension Asthma Diabetes Father Stroke, Onset Age: 57 Brother Diabetes Brother Myocardial infarction, Onset Age: 58 Other No family history of adverse response to anesthesia Denies family history of Ovarian cancer Prostate cancer Breast cancer Colorectal cancer Social History Smoking Status: Never smoker Tobacco Type: Cigarettes Second Hand Exposure: Yes (mom smoked); Hx Alcohol Use: Yes Alcohol type: hard liquor Alcohol Intake Frequency: Monthly or Less Hx Substance Use: Yes (smokes marijuana monthly) Preferred Language: Cameroonian Communication Ability: Effective Visual Impairment: No Limitations Hearing Ability: Normal Review Specialist Required: No Beliefs That Will Affect Care: None marital status: Current Living Situation: Significant Other current occupational status: employed 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 Tea - occasionally.) during the past year weight has: remained stable Dental Care, Regularly: Yes Physical Activity Frequency: Daily Seatbelt Use: always Sunscreen Use: Yes Assistive Devices: None Allergies Allergies Allergy/AdvReac Type Severity Reaction Status Date / Time aloe Allergy Mild Rash Verified 01/15/22 00:01 morphine Allergy Mild GI Verified 01/15/22 00:01 SYMPTOMS - nausea Home Meds Home Medications Medication Instructions Recorded Confirmed milk thistle 175 mg tablet 175 mg PO QAM tab 03/28/19 01/15/22 multivitamin (Multiple Vitamins) 1 tab PO QAM 06/13/19 01/15/22 anastrozole 1 mg tablet 1 mg PO QAM 11/08/19 01/15/22 turmeric 400 mg capsule 400 mg PO QAM 03/19/21 01/15/22 cholecalciferol (vitamin D3) 25 25 mcg PO DAILY 01/15/22 01/15/22 mcg (1,000 unit) tablet ferrous sulfate 134 mg (27 mg 0 mg PO DAILY 01/15/22 01/15/22 iron) tablet Results & Data (ED) Vital Signs Vital Signs - 24 hr 01/14/22 23:12 01/14/22 23:16 01/14/22 23:19 Temperature 36.4 C L Temperature Source Temporal Artery Scan Pulse Rate 89 80 Pulse Rate [Right Finger] 80 Pulse Rhythm [Right Finger] Regular Pulse Strength [Right Finger] Normal Respiratory Rate 16 19 Respiratory Effort / Characteristics Non-Labored Respiratory Depth Normal Blood Pressure 158/101 H Blood Pressure [Left Arm] 140/98 Blood Pressure Mean 120 Blood Pressure Mean [Left Arm] 112 Blood Pressure Position [Left Arm] Lying Pulse Oximetry 95 98 95 Oxygen Delivery Method Room Air Room Air Room Air Sepsis Recent Fever Within 48 Hours No Sepsis New/Unexplained Change in Mental Status N/A Sepsis Action Taken by Nursing No Action Required Laboratory Data Result diagrams: 01/14/22 23:30 01/14/22 23:30 Lab Results 01/14/22 01/14/22 01/14/22 Range/Units 23:30 23:30 23:30 WBC 5.62 (4.8-10.8) K/uL RBC 4.41 (4.2-5.4) M/uL Hgb 14.4 (12.0-16.0) g/dL Hct 42.1 (37-47) % MCV 95.5 (80-100) fL MCH 32.7 (25-34) pg MCHC 34.2 (32-36) g/dL RDW Std Deviation 46.5 H (36.4-46.3) fL RDW Coeff of Camron 13.4 (11.5-14.5) % Plt Count 195 (130-400) K/uL MPV 9.1 (7.4-10.4) fL Immature Gran % (Auto) 0.2 % Neut % (Auto) 59.1 % Lymph % (Auto) 28.6 % [place] % (Auto) 8.0 % Eos % (Auto) 3.9 % Baso % (Auto) 0.2 % Neut # (Auto) 3.32 (1.4-6.5) K/uL Lymph # (Auto) 1.61 (1.2-3.4) K/uL [place] # (Auto) 0.45 (0.11-0.59) K/uL Eos # (Auto) 0.22 (0-0.5) K/uL Baso # (Auto) 0.01 (0-0.2) K/uL Immature Gran # (Auto) 0.01 (0.00-0.02) K/uL PT 10.9 (9.0-12.0) Seconds INR 1.0 (0.9-1.1) APTT 24.8 (21.0-31.0) Seconds PTT Ratio 0.9 Sodium 140 (136-145) mmol/L Potassium 3.7 (3.5-5.1) mmol/L Chloride 103 (98-107) mmol/L Carbon Dioxide 29 (21-32) mmol/L Anion Gap 8 (3-11) BUN 17 (6-23) mg/dl Creatinine 0.81 (0.6-1.2) mg/dl Est Cr Clr Drug Dosing 69.4 ml/min Est GFR ( Amer) 93.4 ml/min Est GFR (Non-Af Amer) 80.6 ml/min BUN/Creatinine Ratio 21.0 H (10-20) Glucose 107 H (70-99(Fasting)) mg/dl Calcium 10.0 (8.5-10.1) mg/dl Total Bilirubin 0.5 (0.2-1.0) mg/dl AST 26 (13-39) U/L ALT 22 (7-52) U/L Alkaline Phosphatase 55 (34-104) U/L Troponin I < 0.03 (0-0.04) ng/ml Total Protein 7.6 (6.0-8.3) gm/dl Albumin 4.4 (3.4-5.0) gm/dl Globulin 3.2 (2.5-4.0) gm/dl Albumin/Globulin Ratio 1.4 (0.9-2) Lipase 55 (11-82) U/L Administered Medications Discontinued Medications Sodium Chloride (Nss) 500 mls @ 999 mls/hr IV .Q31M STA Stop: 01/14/22 23:49 Last Infusion: 01/15/22 01:01 Dose: 0 mls/hr Documented by: [id number] Admin: 01/14/22 23:39 Dose: 999 mls/hr Documented by: [id number] Ioversol (Optiray 320 125ml) 125 ml IV ONCE ONE Stop: 01/15/22 00:42 Last Admin: 01/15/22 00:42 Dose: 89 ml Documented by: [id number] Discharge Plan Visit Data Chief Complaint: Chest Pain Stated Complaint: CHEST PAIN ED Provider: Naren Simpson Discharge Problem: Chest pain Forms Stand Alone Forms: My [facility] Prescriptions Prescriptions: No Action milk thistle 175 mg tablet 175 mg PO QAM RF: 0 multivitamin [Multiple Vitamins] tablet 1 tab PO QAM RF: 0 anastrozole 1 mg tablet 1 mg PO QAM RF: 0 turmeric 400 mg Capsule 400 mg PO QAM RF: 0 cholecalciferol (vitamin D3) 25 mcg (1,000 unit) Tablet 25 mcg PO DAILY RF: 0 ferrous sulfate 134 mg (27 mg iron) Tablet 0 mg PO DAILY RF: 0 Referrals Referrals: Yina Flanagan DO [Primary Care Provider] - Discharge Problem: Chest pain Qualifiers: Chest pain type: unspecified Qualified Code(s): R07.9 - Chest pain, unspecified
[2022-01-14 23:38] LABS: Basophils # (auto) 0.01 K/uL (0-0.2); Basophils % (auto) 0.2 %; Eosinophils # (auto) 0.22 K/uL (0-0.5); Eosinophils % (auto) 3.9 %; Hematocrit (blood only) 42.1 % (37-47); Hemoglobin 14.4 g/dL (12.0-16.0); Immature Granulocytes # (auto) 0.01 K/uL (0.00-0.02); Immature Granulocytes % (auto) 0.2 %; Lymphocytes # (auto) 1.61 K/uL (1.2-3.4); Lymphocytes % (auto) 28.6 %; Mean Corpuscular Hemoglobin 32.7 pg (25-34); Mean Corpuscular Hgb Conc 34.2 g/dL (32-36); Mean Corpuscular Volume 95.5 fL (80-100); Mean Platelet Volume 9.1 fL (7.4-10.4); Monocytes # (auto) 0.45 K/uL (0.11-0.59); Neutrophils # (auto) 3.32 K/uL (1.4-6.5); Neutrophils % (auto) 59.1 %; Platelet Count 195 K/uL (130-400); RDW Coefficient of Variation 13.4 % (11.5-14.5); RDW Standard Deviation 46.5 fL (36.4-46.3); Red Blood Count 4.41 M/uL (4.2-5.4); White Blood Count 5.62 K/uL (4.8-10.8)
[2022-01-14 23:50] LABS: Partial Thromboplastin Ratio 0.9; Partial Thromboplastin Time 24.8 Seconds (21.0-31.0); Prothrombin Time 10.9 Seconds (9.0-12.0)
[2022-01-15 00:04] LABS: Alanine Aminotransferase 22 U/L (7-52); Albumin Globulin Ratio 1.4 (0.9-2); Albumin Level 4.4 gm/dl (3.4-5.0); Alkaline Phosphatase 55 U/L (34-104); Anion Gap 8 (3-11); Aspartate Aminotransferase 26 U/L (13-39); Bilirubin,Total 0.5 mg/dl (0.2-1.0); Blood Urea Nitrogen 17 mg/dl (6-23); Carbon Dioxide 29 mmol/L (21-32); Chloride 103 mmol/L (98-107); Creatinine Clr Calc Pharmacy 69.4 ml/min; Est GFR (African American) 93.4 ml/min; Est GFR (Non-African American) 80.6 ml/min; Globulin 3.2 gm/dl (2.5-4.0); Glucose 107 mg/dl (70-99(Fasting)); Lipase 55 U/L (11-82); Potassium 3.7 mmol/L (3.5-5.1); Sodium 140 mmol/L (136-145); Total Protein 7.6 gm/dl (6.0-8.3)
[2022-01-15 00:05] LABS: Troponin I < 0.03 ng/ml (0-0.04)
[2022-01-15] MEDS ORDERED: OPTIRAY 320 125ml IV ONE (00:41)
[2022-01-15] MEDS ORDERED: ASPIRIN CHEW 324 MG PO STA (01:24)
--- NOTE | 2022-01-15 02:13 | History & Physical Report ---
Date of Service January 15, 2022 Assessment & Plan (1) Chest pain: (2) Stage 2 chronic kidney disease: (3) Infiltrating ductal carcinoma of left breast: Plan: Sona Whyte is a 56-year-old female with past medical history of left breast ductal carcinoma, CKD, hypercholesterolemia who presents today due to left-sided chest pain. Chest pain At this time seems unlikely to be cardiac related with normal EKG and negative troponin Per history, more likely GI related Of note, her anastrozole does increase her risk of ND or angina Will admit for observation to med telemetry Trend troponin Will start on Protonix 40 mg p.o., as her pain seems to be worse after meals EKG if repeat chest pain Labs in the morning Ductal carcinoma left breast Status post lumpectomy, radiation Currently on anastrozole to complete 5-year course see above Continue med at this time CKD, stage II No acute kidney injury eGFR 80, creatinine 0.81, BUN 17 Avoid nephrotoxins DVT prophylaxis: Lovenox SQ Diet: Heart healthy Dispo: Med telemetry for observation CODE STATUS: Full History of Present Illness Primary Care Provider: Yina Flanagan DO Snoa Wyhte is a 56-year-old female with past medical history of left breast ductal carcinoma, CKD, hypercholesterolemia who presents today due to left-sided chest pain. She mentions that she has had this happen intermittently since her breast cancer diagnosis. With this most recent episode, first felt the pain this past Wednesday. She states it felt sharp, like a stab and would preclude her from taking a full deep breath due to pain. She did not have any associated shortness of breath. She decided to sleep on it and see if it got better the next day. She states on Wednesday the pain was better, though she could still feel a tightness in her chest she describes it as when you pull a muscle and it still feels tight thereafter. However, on Sunday 01/14 (day of her ED visit), patient said the pain was sharp and stabbing again, and persisted more than it had before. She says at that point she noticed that it seems to be worse after meals, though will linger in between meals as well. In the ED, patient received aspirin 324 mg x 1, normal saline 1 L bolus. She had lab work showing normal white count, normal hemoglobin, normal platelets, normal electrolytes, and a negative troponin. Her EKG showed normal sinus rhythm. She had a CT of the chest showing mild posterior dependent atelectasis, no pulmonary embolism, no pleural effusions, no pneumothorax. She did have a somewhat elevated blood pressure to the 150s over 100s, but remained otherwise hemodynamically stable and saturating adequately on room air. At the time of my evaluation, patient states that the sharp pain has subsided but she is able to feel the tightness she had described above. She denies palpitations, shortness of breath, cough, abdominal pain, heartburn, nausea, vomiting, stool changes, headache, dizziness, numbness, swelling, weakness. Allergies Allergy/AdvReac Type Severity Reaction Status Date / Time aloe Allergy Mild Rash Verified 01/15/22 00:01 morphine Allergy Mild GI Verified 01/15/22 00:01 SYMPTOMS - nausea Home Medications Medication Instructions Recorded Confirmed Type milk thistle 175 mg tablet 175 mg PO QAM tab 03/28/19 01/15/22 History multivitamin (Multiple Vitamins) 1 tab PO QAM 06/13/19 01/15/22 History anastrozole 1 mg tablet 1 mg PO QAM 11/08/19 01/15/22 History turmeric 400 mg capsule 400 mg PO QAM 03/19/21 01/15/22 History cholecalciferol (vitamin D3) 25 25 mcg PO DAILY 01/15/22 01/15/22 History mcg (1,000 unit) tablet ferrous sulfate 134 mg (27 mg 0 mg PO DAILY 01/15/22 01/15/22 History iron) tablet Past Med/Surg History Medical History (Updated 01/15/22 @ 01:28 by Naren Simpson DO) Anemia Arthritis of carpometacarpal (CMC) joint of right thumb Dupuytren contracture History of left breast cancer 02/2017--sx/radiation/oral chemo Hypercholesterolemia 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 by [facility] 2010 Right renal stone Stage 2 chronic kidney disease Trigger finger Surgical History H/O tubal ligation History of colonoscopy History of dilatation and curettage History of kidney surgery left kidney stent placed, then later kidney removed History of left breast biopsy malignant History of left nephrectomy (~2010) History of lumpectomy of left breast Secondary Low grade DCIS, invasive mammary carcinoma, 02/26/2017 History of wisdom tooth extraction S/P left knee arthroscopy S/P tubal ligation Family History Mother COPD (chronic obstructive pulmonary disease) Hypertension Asthma Diabetes Father Stroke, Onset Age: 57 Brother Diabetes Brother Myocardial infarction, Onset Age: 58 Other No family history of adverse response to anesthesia Denies family history of Ovarian cancer Prostate cancer Breast cancer Colorectal cancer Social History Smoking Status: Never smoker Tobacco Type: Cigarettes Second Hand Exposure: Yes (mom smoked); Hx Alcohol Use: Yes Alcohol type: hard liquor Alcohol Intake Frequency: Monthly or Less Hx Substance Use: Yes (smokes marijuana monthly) Preferred Language: Micronesian Communication Ability: Effective Visual Impairment: No Limitations Hearing Ability: Normal Edge Sander Required: No Beliefs That Will Affect Care: None marital status: Current Living Situation: Significant Other current occupational status: employed 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 Tea - occasionally.) during the past year weight has: remained stable Dental Care, Regularly: Yes Physical Activity Frequency: Daily Seatbelt Use: always Sunscreen Use: Yes Assistive Devices: None Review of Systems Review of Systems: All systems reviewed & are unremarkable except as noted in HPI & below Physical Exam Physical Exam: GENERAL: A&Ox3. NAD. HEENT: PERRL, EOMI. Moist mucous membranes. NECK: No JVD. No lymphadenopathy. CHEST/LUNGS: CTAB A/P. No crackles, wheezes, rales, rhonchi. Pain not reproducible on palpation of chest wall. HEART: RRR. No m/g/r. ABDOMEN: NT/ND, soft. BS+ x4 EXTREMITIES: No cyanosis, no clubbing, no edema SKIN: Warm and dry. No rashes or lesions. PSYCHIATRIC: Euthymic affect, no SI, no pressured speech, no hallucinations NEUROLOGIC: No FND. CN II-XII grossly intact. Results & Data Results & Data ([facility]) Vital Signs (Past 12 Hours) Vital Signs Temp Pulse Pulse Resp BP BP Pulse Ox 01/15/22 01:12 86 16 157/107 H 97 01/14/22 23:19 80 95 01/14/22 23:16 36.4 C L 89 19 158/101 H 98 01/14/22 23:12 80 16 140/98 95 Code Status & VTE Plan VTE Prophylaxis Plan VTE Prophylaxis will be ordered: Yes Supervising Physician Co-Signing Physician Notes Patient seen and examined, chart reviewed, case discussed with Dr. Paerl Coronel and I agree with the assessment and plan as above Chest discomfort, worse after meals h/o DCIS on Anastrazole Exam unremarkable Chest pain reproducible +epigastric discomfort Assessment/Plan -?GI etiology - initiate protonix -Trend troponin -consider stress testing -remainder as above Resident Activity Tracking Resident Involvement: Resident Care Provided Care Provided: Adult Hospital Medicine (1) Chest pain Chest pain type: unspecified Qualified Code(s): R07.9 - Chest pain, unspecified
[2022-01-15] MEDS ORDERED: PANTOprazole 40 MG TAB PO ONE (03:00)
[2022-01-15] MEDS ORDERED: POLYETHYLENE (MIRALAX) 17 GM PACK PO PRN (03:00)
[2022-01-15] MEDS ORDERED: ACETAMINOPHEN 325 MG TAB PO PRN ×2 (03:00→08:53)
[2022-01-15] MEDS ORDERED: MAGNESIUM HYDROXIDE SUSP 30 ML UDC PO PRN (03:00)
--- NOTE | 2022-01-15 03:56 | Billing Data ---
Date of Service January 15, 2022 Coding Level of Care Code INT OBSERVATION CARE 50M LVL 2
[2022-01-15 05:34] LABS: Basophils # (auto) 0.02 K/uL (0-0.2); Basophils % (auto) 0.4 %; Eosinophils # (auto) 0.21 K/uL (0-0.5); Eosinophils % (auto) 4.4 %; Hematocrit (blood only) 38.6 % (37-47); Hemoglobin 13.1 g/dL (12.0-16.0); Lymphocytes # (auto) 1.53 K/uL (1.2-3.4); Mean Corpuscular Hemoglobin 32.3 pg (25-34); Mean Corpuscular Hgb Conc 33.9 g/dL (32-36); Mean Corpuscular Volume 95.1 fL (80-100); Mean Platelet Volume 9.1 fL (7.4-10.4); Monocytes % (auto) 10.5 %; Neutrophils # (auto) 2.52 K/uL (1.4-6.5); Neutrophils % (auto) 52.7 %; Platelet Count 168 K/uL (130-400); RDW Coefficient of Variation 13.3 % (11.5-14.5); Red Blood Count 4.06 M/uL (4.2-5.4); White Blood Count 4.78 K/uL (4.8-10.8)
[2022-01-15 05:56] LABS: Troponin I < 0.03 ng/ml (0-0.04)
[2022-01-15 06:00] LABS: Alanine Aminotransferase 18 U/L (7-52); Albumin Globulin Ratio 1.5 (0.9-2); Albumin Level 3.9 gm/dl (3.4-5.0); Alkaline Phosphatase 49 U/L (34-104); Anion Gap 4 (3-11); Aspartate Aminotransferase 22 U/L (13-39); BUN Creatinine Ratio 20.6 (10-20); Bilirubin,Total 0.5 mg/dl (0.2-1.0); Blood Urea Nitrogen 14 mg/dl (6-23); Calcium 9.2 mg/dl (8.5-10.1); Carbon Dioxide 27 mmol/L (21-32); Chloride 106 mmol/L (98-107); Creatinine Clr Calc Pharmacy 82.7 ml/min; Est GFR (African American) 112.5 ml/min; Est GFR (Non-African American) 97.1 ml/min; Globulin 2.6 gm/dl (2.5-4.0); Glucose 98 mg/dl (70-99(Fasting)); Magnesium 1.8 mg/dl (1.7-2.4); Potassium 3.8 mmol/L (3.5-5.1); Sodium 137 mmol/L (136-145); Total Protein 6.5 gm/dl (6.0-8.3)
--- NOTE | 2022-01-15 07:21 | Discharge Summary ---
Date of Service January 15, 2022 Admission HPI Per Admitting Provider Sona Whyet is a 56-year-old female with past medical history of left breast ductal carcinoma, CKD, hypercholesterolemia who presents today due to left-sided chest pain. She mentions that she has had this happen intermittently since her breast cancer diagnosis. With this most recent episode, first felt the pain this past Wednesday. She states it felt sharp, like a stab and would preclude her from taking a full deep breath due to pain. She did not have any associated shortness of breath. She decided to sleep on it and see if it got better the next day. She states on Wednesday the pain was better, though she could still feel a tightness in her chest she describes it as when you pull a muscle and it still feels tight thereafter. However, on Sunday 01/14 (day of her ED visit), patient said the pain was sharp and stabbing again, and persisted more than it had before. She says at that point she noticed that it seems to be worse after meals, though will linger in between meals as well. In the ED, patient received aspirin 324 mg x 1, normal saline 1 L bolus. She had lab work showing normal white count, normal hemoglobin, normal platelets, normal electrolytes, and a negative troponin. Her EKG showed normal sinus rhythm. She had a CT of the chest showing mild posterior dependent atelectasis, no pulmonary embolism, no pleural effusions, no pneumothorax. She did have a somewhat elevated blood pressure to the 150s over 100s, but remained otherwise hemodynamically stable and saturating adequately on room air. At the time of my evaluation, patient states that the sharp pain has subsided but she is able to feel the tightness she had described above. She denies palpitations, shortness of breath, cough, abdominal pain, heartburn, nausea, vomiting, stool changes, headache, dizziness, numbness, swelling, weakness. Admission Exam Per Admitting Provider GENERAL: A&Ox3. NAD. HEENT: PERRL, EOMI. Moist mucous membranes. NECK: No JVD. No lymphadenopathy. CHEST/LUNGS: CTAB A/P. No crackles, wheezes, rales, rhonchi. Pain not reproducible on palpation of chest wall. HEART: RRR. No m/g/r. ABDOMEN: NT/ND, soft. BS+ x4 EXTREMITIES: No cyanosis, no clubbing, no edema SKIN: Warm and dry. No rashes or lesions. PSYCHIATRIC: Euthymic affect, no SI, no pressured speech, no hallucinations NEUROLOGIC: No FND. CN II-XII grossly intact. Principal Diagnosis Musculoskeletal Chest Pain Discharge Exam General: A&Ox3. NAD. Cooperative. HEENT: Atraumatic, normocephalic. Pulm: CTAB A&P. -wheezes, -rales, -rhonchi. Symmetrical chest rise. No increase work of breathing. No respiratory distress. Cardiac: RRR, -mrg. Radial pulses intact and symmetrical. No LE edema. Chest: moderate tenderness to palpation of left edge of sternum, extending linearly towards axilla Abdominal: soft, non-tender, non-distended, BS x 4 Skin: warm, dry, no rash Discharge Data Allergies Allergy/AdvReac Type Severity Reaction Status Date / Time aloe Allergy Mild Rash Verified 01/15/22 00:01 morphine Allergy Mild GI Verified 01/15/22 00:01 SYMPTOMS - nausea Consultations 01/15/22 01:32 ED Decision to Admit Stat Ordered Studies 01/14/22 23:31 CT angio chest PE protocol Urgent Hospital Course (1) Chest pain: (2) Stage 2 chronic kidney disease: (3) Infiltrating ductal carcinoma of left breast: Sona Whyte is a 56-year-old female with past medical history of left breast ductal carcinoma, CKD, hypercholesterolemia who was admitted to [facility] on 01/15 for chest pain - determined to be musculoskeletal in origin after ACS work- up. Chest pain Pain is pleuritic (on inspiration) in nature and reproducible on exam - suspect pectoralis major muscle strain +/- costochondritis. Negative cardiac work-up and minimal risk factors for ACS. - EKG without ST/T changes and Troponin negative x2 - Protonix given without improvement in pain - stopped - Tylenol x1 helped with the pain - continue PRN after discharge - Counseled on returning to ED if has worsening pain - F/u with PCP - will defer decision for stress testing to PCP Right Upper Lung Nodule 5mm, incidental finding on CTA chest. - f/u in [address] or MRI to ensure stability - note: patient desires to time the serial imaging study with her routine breast imaging in order to minimize contrast exposure - defer to PCP Ductal carcinoma left breast Status post lumpectomy, radiation. - continue Anastrazole CKDII - Avoid nephrotoxins Total Time Total Time Spent Total Time Spent (In Minutes): 30 minutes Discharge Plan Discharge Items Patient Disposition: Home - Self-Care Reason For Visit: LEFT-SIDED CHEST PAIN Discharge Diagnosis: Musculoskeletal Chest Pain Activity: Per Instructions section Non-emergency contact: Primary Care Provider Call non-emergency contact if: your symptoms worsen and your pain is not controlled Follow-up/Referrals: Yina Flanagan DO [Primary Care Provider] - (please schedule patient in 1-2 weeks) Diet: Regular Addtl Attending Provider Instructions: You were admitted to [facility] on 01/15 for chest pain. Thankfully, all of the blood work, imaging studies, and heart rhythm testing that we did was normal. Given your recent bike riding, and your muscular pain on physical exam, it is likely that your worsening chest pain is due to both inflammation in your rib cartilage as well as strain of your left chest muscle. Incidentally, there was a very small and benign-appearing right upper lung nodule that was found on CT imaging. A great majority of these types of nodules are completely benign, but you will need to have repeat imaging in 6 months to ensure that it looks the same at that time. Please speak to your PCP to determine if your regular breast imaging can also be adequate to follow up on this nodule. You will be discharged on 01/15. Please do not hesitate to take Tylenol for your chest pain. You can take up to 3000mg per day. Please do not hesitate to contact us if your chest pain worsens. Please continue to take your regular home medications as scheduled. We hope you continue to feel better. It was a pleasure to help provide your care while you were hospitalized. Pending Studies at Discharge: No Stand-Alone Forms: My [facility], Smoking Cessation Medications and DC Order Prescriptions: Continued milk thistle 175 mg tablet 175 mg PO QAM RF: 0 multivitamin [Multiple Vitamins] tablet 1 tab PO QAM RF: 0 anastrozole 1 mg tablet 1 mg PO QAM RF: 0 turmeric 400 mg Capsule 400 mg PO QAM RF: 0 cholecalciferol (vitamin D3) 25 mcg (1,000 unit) Tablet 25 mcg PO DAILY RF: 0 ferrous sulfate 134 mg (27 mg iron) Tablet 0 mg PO DAILY RF: 0 Discharge Orders: Discharge Order (Routine); Ordered 01/15/22 Ordered By: Omar Resendez Admission Data Admit Date/Time: 01/15/22 02:12 Attending Provider: Justin Calix Admit Provider: Graham Rios Primary Care Provider: Yina Flanagan Other Providers: Kathie Ivy Other Interventions: Discharge Summary Assessment (RN) Last Done: 01/15/22 12:17 Supervising Physician Co-Signing Physician Notes Attending attestation Pt seen and examined in concert with Dr. Resendez. In agreement with the documented findings as noted in the resident documentation with any exceptions or additions as noted here. Reports improved central chest pain which is approaching her chronic intermittent baseline following APAP administration. No further report of SOB, lightheadedness, reflux, palpitations. Onset of pain coincided with extended bicycle riding in [facility]. On examination, S1/S2 nl RRR no MCG. CTAB. Abd NT/ND BS+ve. TTP over the area of the pectoralis muscle on the left, peristernal Chest pain - acute on chronic - cardiac evaluation as noted above. Counseling on pain management and importance of follow up with PCP for similar Lung nodule - right upper incidental finding on CT chest - repeat in 6 months as outpatient Else see resident documentation as noted. Total attending physician time spent on this patient's care on the day of discharge: 40 minutes. Resident Activity Tracking Resident Involvement: Resident Care Provided Care Provided: Adult Hospital Medicine
--- NOTE | 2022-01-15 07:37 | XRay Report ---
XR chest 1V portable CLINICAL HISTORY: Atypical chest pain TECHNIQUE: Single frontal radiograph of the chest was obtained. Comparison: Chest 2 views 03/11/2011 FINDINGS: No lines and tubes are seen. The cardiomediastinal silhouette is normal. The lungs are clear. No evid ence of pleural effusion or pneumothorax. Incidental note is made of calcific tendinopathy about the right humerus. IMPRESSION: No acute chest disease. ACT 112: Negative or not required by law. Electronically signed by: Luigi Salas M.D. 01/15/2022 7:36 AM
--- NOTE | 2022-01-15 08:44 | CT Scan Report ---
CT ANGIOGRAPHY OF THE CHEST, PULMONARY EMBOLUS PROTOCOL CLINICAL HISTORY: Left-sided chest pain. Evaluate for pulmonary embolus. COMPARISON STUDY: Chest CT December 28, 2010. TECHNIQUE: Following IV administration of 89 mL of Optiray, helical axial images of the chest were ob tained utilizing the pulmonary embolus protocol. Maximal intensity projections and sagittal and rosana nal reformats were viewed on an independent 3D workstation. IV contrast was administered without com plication. Automated exposure control was utilized for the study. A dose lowering technique was uti lized adhering to the principles of ALARA. CT DOSE: 238.59 mGy.cm FINDINGS: No enlarged axillary, mediastinal or hilar lymph nodes are present. Size of the heart is n ormal. There is no pericardial effusion. No pulmonary emboli are identified. No thoracic aortic disse ction. Caliber of the ascending aorta is normal. Central airways are patent. No consolidation to sugg est pneumonia. There is mild upper lobe predominant paraseptal emphysema. A 5 mm right upper lobe nod ule on image 227 of [address] of December 28, 2010. A few pleural/subpleural right middle lobe nodules are unchanged from prior exam. These are benign. No acute fracture within this portion of the bony thorax. 1.3 cm hypodense medial left breast nodule is similar to MRI of April 10, 2021. This fav ors a cyst. Left nephrectomy bed is partially imaged. IMPRESSION: 1. No pulmonary emboli identified. 2. No acute process within the chest. 3. 5 mm right upper lobe nodule. This is indeterminate and a follow-up chest CT in 6 months to ensure stability is recommended. ACT 112: Positive. There are findings on this exam that require communication between the performing entity and the patient following Patient Test Result Information Act ([place] Act 112) guidelines. Electronically signed by: Epifanio Mims M.D. 01/15/2022 8:43 AM
[2022-01-15] MEDS ORDERED: ACETAMINOPHEN 500 MG TAB PO STA (08:53)
[2022-01-15] MEDS ORDERED: CHOLECALCIFEROL 1,000 UNITS 25 MCG TAB PO SCH (09:00)
[2022-01-15] MEDS ORDERED: FERROUS SULFATE PO SCH (09:00)
[2022-01-15] MEDS ORDERED: ENOXAPARIN INJ 40 MG/0.4 ML SYR SQ SCH (09:00)
[2022-01-15] MEDS ORDERED: ANASTROZOLE 1 MG TAB PO SCH (09:00)
[2022-01-15] MEDS ORDERED: NON-FORMULARY MEDICATION (Turmeric 400 mg Capsule) PO SCH (09:00)
[2022-01-15] MEDS ORDERED: MULTIVITAMIN TAB PO SCH (09:00)
[2022-01-15 10:07] LABS: Estimated Average Glucose 111 mg/dl; Hemoglobin A1C 5.5 % (4.5-5.6)
[2022-01-15] MEDS ORDERED: ACETAMINOPHEN 500 MG TAB ONE (11:30)
--- NOTE | 2022-01-15 16:56 | Electrocardiogram Report ---
Test Reason : Blood Pressure : / mmHG Vent. Rate : 091 BPM Atrial Rate : 091 BPM P-R Int : 148 ms QRS Dur : 086 ms QT Int : 350 ms P-R-T Axes : 070 058 029 degrees QTc Int : 430 ms Normal sinus rhythm Normal ECG When compared with ECG of 11-MAR-2011 10:17, No significant change was found Confirmed by Derrick Taylor ([id number]) on 01/15/2022 4:56:19 PM Referred By: REFERRED SELF Confirmed By:Emile Taylor
[2022-01-15] MEDS ORDERED: PANTOprazole 40 MG TAB PO SCH (21:00)
== END 2022-01-15 12:34 | disposition home or self-care (01) ==
LOC: ED 23:12 → EDINP 23:12 → SUATTDRO 01-15 02:12 → EDINP 01-15 09:27

== ENCOUNTER 2025-03-06 15:23 | Inpatient (IN) ==
--- NOTE | 2025-03-06 15:33 | Emergency Department Note ---
History of Present Illness General Chief complaint: Testing Request Stated complaint: X-RAY BELEN TONG REF Time Seen by Provider: 03/06/25 15:30 History of Present Illness This is a 59-year-old female who presents to the emergency department via private vehicle with complaints of "continued right chest/back pain". Patient began with discomfort to the right chest/right upper back area in December of this year and thought perhaps it was secondary to a rib issue and follow-up with chiropractic. She notes that she did have some manipulations and the pain seemed to improve but then returned this past January. She then presented to the ED on 03/02 noting 4 days of worsening pain. It was worse with movement and worse with a deep breath. She denies any history of NM or PE. No known trauma or injury. No anticoagulant use. The patient did receive a phone call today from ED pharmacist reviewing the urine culture which resulted E. coli and Pseudomonas. During the phone call patient noted worsening discomfort at the previously described right anterior chest and right upper back. I ultimately became part of the phone call, and in discussion with the patient noting her worsening symptoms recommended she return here to the ED for further assessment. Patient does have a PCP follow-up she notes but not for 1 month from now. Patient denies any fevers or chills. No nausea or vomiting. No central chest pain. Pain continues to be on the right anterior chest that radiates into the right upper back area. It is still worse with deep breath and movements. Home Medications Medication Instructions Recorded Confirmed Type cephalexin 500 mg capsule 500 mg PO BID 7 days #14 caps 03/02/25 03/06/25 Rx cyclobenzaprine 5 mg tablet 5 mg PO Q8H PRN muscle spasm #15 03/02/25 03/06/25 Rx tabs Allergies Allergy/AdvReac Type Severity Reaction Status Date / Time aloe Allergy Mild Rash Verified 12/14/24 07:30 morphine Allergy Mild GI Verified 12/14/24 07:30 SYMPTOMS - nausea Past Med/Surg History Problem List (Updated 03/06/25 @ 22:40 by Vasile Arzola PA-C) Back pain (Acute) Intractable pain (Acute) Abnormal magnetic resonance imaging of thoracic spine (Acute) History of breast cancer (Acute) Chest pain (Acute) Rib pain Ectatic aorta (Acute) UTI (urinary tract infection) (Acute) Upper back pain on right side (Acute) Right-sided chest wall pain (Acute) History of left breast cancer 02/2017--sx/radiation/oral chemo Vitamin D deficiency Pulmonary nodule Osteopenia Nephrolithiasis Dupuytren contracture Arthritis of carpometacarpal (CMC) joint of right thumb 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 completed Arimidex therapy May 2017-Nov 2022 Breast cancer (02/03/17) "Development of a white nipple discharge on the right breast Status post abnormal left breast mammogram 02/02/2017 Status post core needle biopsies 02/03/2017 revealing invasive ductal carcinoma grade 1 Estrogen receptor was positive, progesterone receptor positive, and HER-2/karen negative Status post partial mastectomy and sentinel lymph node biopsy 02/26/2017 Stage pT1c pN0 positive lateral deep margin Status post reexcision 03/18/2017, benign Oncotype DX score of 16 Status post completion of radiation therapy 06/04/2017. She received 5130 cGy utilizing hypo-fractionation." On 04/14/17 12:18 Tamika Vera wrote "Development of a white nipple discharge on the right breast Status post abnormal left breast mammogram 02/02/2017 Status post core needle biopsies 02/03/2017 revealing invasive ductal carcinoma grade 1 Estrogen receptor was positive, progesterone receptor positive, and HER-2/karen negative Status post partial mastectomy and sentinel lymph node biopsy 02/26/2017 Stage pT1c pN0 positive lateral deep margin Status post reexcision 03/18/2017, benign Oncotype DX score of 16 " Osteoarthritis Anemia Surgical History S/P tubal ligation History of dilatation and curettage History of kidney surgery left kidney stent placed, then later kidney removed History of colonoscopy History of left breast biopsy malignant History of wisdom tooth extraction History of left nephrectomy (~2010) History of lumpectomy of left breast Secondary Low grade DCIS, invasive mammary carcinoma, 02/26/2017 H/O tubal ligation S/P left knee arthroscopy Family History Mother COPD (chronic obstructive pulmonary disease) Hypertension Asthma Diabetes Father Stroke, Onset Age: 57 Brother Diabetes Brother Myocardial infarction, Onset Age: 58 Other No family history of adverse response to anesthesia Denies family history of Ovarian cancer Prostate cancer Breast cancer Colorectal cancer Social History Smoking Status: Never smoker Tobacco Type: Cigarettes Age Started Using Tobacco: 14; Age Quit Using Tobacco: 46; packs per day: 1; Second Hand Exposure: Yes (mom smoked); Do You Dip or Chew Tobacco: No (quit a long time ago); Hx Alcohol Use: Yes Alcohol type: hard liquor Alcohol Intake Frequency: Monthly or Less Hx Substance Use: Yes (smokes marijuana occasionally ) Preferred Language: Indonesian Communication Ability: Effective Visual Impairment: No Limitations Hearing Ability: Normal Gas Tester Required: No Beliefs That Will Affect Care: None marital status: Current Living Situation: Significant Other current occupational status: employed 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 Feels Safe at Home: Yes Childhood Exposure to Second-Hand Smoke: Yes Diet: regular Diet Comment: regular caffeine: Yes during the past year weight has: remained stable Dental Care, Regularly: Yes Physical Activity Frequency: Daily Seatbelt Use: always Sunscreen Use: Yes Assistive Devices: None Review of Systems A total of 10 systems reviewed and were otherwise negative Physical Exam Vital Signs Vital Signs - 24 hr 03/06/25 15:31 03/06/25 15:59 03/06/25 16:54 Temperature 36.6 C Temperature Source Temporal Artery Scan Pulse Rate 90 90 86 Pulse Rate [Apical] Pulse Rate from SpO2 Sensor Pulse Rhythm Regular Respiratory Rate 13 13 Respiratory Effort / Characteristics Non-Labored Spontaneous Respiratory Depth Normal Respiratory Pattern Blood Pressure 162/95 H Blood Pressure [Right Arm] Blood Pressure Mean 117 Blood Pressure Mean [Right Arm] Pulse Oximetry 97 97 Oxygen Delivery Method Room Air Room Air Sepsis Recent Fever Within 48 Hours No Sepsis New/Unexplained Change in Mental Status No Sepsis Action Taken by Nursing No Action Required 03/06/25 16:59 03/06/25 17:00 03/06/25 19:00 Temperature Temperature Source Pulse Rate 80 82 Pulse Rate [Apical] 75 Pulse Rate from SpO2 Sensor 79 82 Pulse Rhythm Respiratory Rate 16 16 18 Respiratory Effort / Characteristics Non-Labored Respiratory Depth Normal Respiratory Pattern Regular Blood Pressure 160/100 H 150/106 H Blood Pressure [Right Arm] 151/98 H Blood Pressure Mean 121 113 Blood Pressure Mean [Right Arm] 115 Pulse Oximetry 96 95 96 Oxygen Delivery Method Room Air Sepsis Recent Fever Within 48 Hours Sepsis New/Unexplained Change in Mental Status Sepsis Action Taken by Nursing 03/06/25 20:09 Temperature Temperature Source Pulse Rate 80 Pulse Rate [Apical] Pulse Rate from SpO2 Sensor Pulse Rhythm Respiratory Rate Respiratory Effort / Characteristics Respiratory Depth Respiratory Pattern Blood Pressure Blood Pressure [Right Arm] Blood Pressure Mean Blood Pressure Mean [Right Arm] Pulse Oximetry Oxygen Delivery Method Sepsis Recent Fever Within 48 Hours Sepsis New/Unexplained Change in Mental Status Sepsis Action Taken by Nursing VITAL SIGNS - Vital signs and nursing notes were reviewed. Stable and afebrile. GENERAL - 59-year-old female appearing her stated age who is in no acute distress. Communicates well with provider and answers questions appropriately. SKIN - Without rashes. HEAD - NC/AT. EYES - PERRL with EOMI bilaterally. Sclera anicteric. EARS - No deformities of external structures noted on gross examination bilaterally. External auditory canals without discharge or otorrhea. Tympanic membranes pearly hunt without retraction or bulging. No fluid or purulent material visualized behind the TM. Handle of malleus, umbo, cone of light, pars tensa/flaccid all easily visualized. NOSE - Midline and without cyanosis. No epistaxis or purulent drainage noted. Septum midline without deviation or septal hematoma noted. MOUTH/OROPHARYNX - Without perioral cyanosis. Buccal mucosa pink and moist and without leukoplakia. Tongue midline with equal elevation of palate bilaterally. No tonsillar hypertrophy, erythema, or exudates noted. Good dentition noted. NECK - Neck with FROM. No nuchal rigidity. LUNGS - CTA CARDIAC - RRR ABDOMEN - Abdominal contour normal without pulsations or visible masses. BS normoactive all four quadrants. No tenderness, palpable masses, hepatosplenomegaly, or ascites noted. EXTREMITIES - No clubbing or peripheral cyanosis. +5/5 strength noted in UE/LE bilaterally. MSK- TTP overlying the thoracic spine region. NEUROLOGIC - Cranial nerves II through XII grossly intact. PSYCH - A&Ox3 and cooperates fully with examiner. Pt is very pleasant and interacts well with examiner. Course Administered Medications Discontinued Medications Acetaminophen (Acetaminophen 500 Mg Tab) 1,000 mg PO NOW STA Stop: 03/06/25 17:12 Last Admin: 03/06/25 17:15 Dose: 1,000 mg Documented By: MITUL Gadobutrol (Gadobutrol 65ml Vial) 6 ml IV ONCE ONE Stop: 03/06/25 18:31 Last Admin: 03/06/25 18:30 Dose: 6 ml Documented By: JB Medical Decision Making Laboratory Data 03/06/25 16:00 03/06/25 16:00 Lab Results 03/06/25 03/06/25 Range/Units 16:00 16:58 WBC 7.92 (4.8-10.8) K/ul RBC 4.38 (4.20-5.40) M/uL Hgb 13.9 (12.0-16.0) g/dl Hct 40.6 (37.0-47.0) % MCV 92.7 (80.0-100.0) fL MCH 31.7 (25.0-34.0) pg MCHC 34.2 (32.0-36.0) g/dL RDW Std Deviation 45.4 (36.4-46.3) fL RDW Coeff of Camron 13.2 (11.5-14.5) % Plt Count 272 (130-400) K/uL MPV 8.7 L (9.4-12.4) fL Immature Gran % (Auto) 0.3 % Neut % (Auto) 64.0 % Lymph % (Auto) 22.0 % [place] % (Auto) 7.7 % Eos % (Auto) 5.1 % Baso % (Auto) 0.9 % Neut # (Auto) 5.08 (1.40-6.50) K/uL Lymph # (Auto) 1.74 (1.20-3.40) K/uL [place] # (Auto) 0.61 H (0.11-0.59) K/uL Eos # (Auto) 0.40 (0.00-0.50) K/uL Baso # (Auto) 0.07 (0.00-0.20) K/uL Immature Gran # (Auto) 0.02 (0.01-0.20) K/uL ESR 58 H (0-30) mm/hr PT 10.7 (9.0-12.0) Seconds INR 1.0 (0.9-1.1) APTT 25 (21-31) Seconds PTT Ratio 0.9 Sodium 138 (136-145) mmol/L Potassium 3.7 (3.5-5.1) mmol/L Chloride 101 (98-107) mmol/L Carbon Dioxide 30 (21-32) mmol/L Anion Gap 7 (3-11) BUN 17 (6-23) mg/dl Creatinine 0.82 (0.6-1.2) mg/dl Est Cr Clr Drug Dosing 64.3 ml/min eGFR 81.84 BUN/Creatinine Ratio 20.7 H (10-20) Glucose 133 H (70-99(Fasting)) mg/dl Calcium 10.6 H (8.6-10.3) mg/dl Total Bilirubin 0.5 (0.2-1.0) mg/dl AST 19 (13-39) U/L ALT 11 (7-52) U/L Alkaline Phosphatase 55 (34-104) U/L Troponin I High Sens 4.4 (0-14) pg/ml Total Protein 8.4 H (6.0-8.3) gm/dl Albumin 4.6 (3.4-5.0) gm/dl Globulin 3.8 (2.5-4.0) gm/dl Albumin/Globulin Ratio 1.2 (0.9-2) Lipase 39 (11-82) U/L Procalcitonin < 0.02 (0-0.5) ng/ml Urine Color Yellow Urine Appearance Clear (Clear) Urine pH 6.0 (4.5-7.5) Ur Specific [place] 1.006 (1.000-1.030) Urine Protein Negative (Negative) Urine Glucose (UA) Negative (Negative) Urine Ketones Negative (Negative) Urine Blood 1+ H (Negative) Urine Nitrite Negative (Negative) Urine Bilirubin Negative (Negative) Urine Urobilinogen Negative (Negative) Ur Leukocyte Esterase Trace H (Negative) Urine WBC (Auto) 0-5 (0-5) /hpf Urine RBC (Auto) 0-2 (0-2) /hpf U Hyaline Cast (Auto) 0-2 (0-2) /lpf U Epithel Cells (Auto) 0-2 (0-2) /hpf Urine Bacteria (Auto) None Seen (None Seen) Imaging Data Radiologist's Impression: Chest X-Ray 03/06/25 15:56 Chest radiograph, one view History: Chest pain Comparison: 03/02/2025 Findings: Single AP view of the chest performed. No focal consolidation or pleural effusion. No pneumothorax. The cardiomediastinal silhouette is within normal limits. Normal pulmonary vascularity. No evidence for lymphadenopathy. No visualized bony or soft tissue abnormality. Impression: Normal chest radiograph Electronically signed by Derrick York 03-06-2025 4:39 PM Thoracic Spine MRI 03/06/25 16:12 EXAM: MR thoracic spine wo/w con CLINICAL HISTORY: Mid chest and Mid back pain TECHNIQUE: Different pulse sequences were performed in different planes for the thoracic spine without and with contrast. 6 ml Gadavist was injected intravenously without complications. Images were sent through PACS for diagnostic interpretation. COMPARISON: CR study dated 12/15/2022, and CT dated 03/02/2025. FINDINGS: Preserved physiological kyphosis. There is no obvious spondylolysis or listhesis. Altered signals of the T3, T4, T5, T6, T7, T8, T9 and T10 vertebral bodyExhibiting low signals on T1 WI and bright signals on T2 on STIR WI.With appreciable enhancement after Gd-DTPA injection, also delineating paravertebral enhancement, most appreciated on the right side. Adjacent to the right upper ribs. Enhanced pedicles and lamina are also noted. Multiple discrete foci are noted at the Posterior ribs. The multiplicity and signal characteristics are highly suggestive of marrow replacement disorder, e.g., metastatic disease. Further workup is recommended to justify this possibility. Review of the prior CT study for the chest shows Bilateral dense breast parenchyma, More on the left side with macrocalcifications. Matches the given history of the underlying neoplastic process. Correlation with PET/CT is recommended. The scanned intervertebral discs show variable degrees of degeneration, denoted by low signal intensity on T2 WI with a relative reduction of their heights. Left nephrectomy. Level by Level analysis: T1-T2: There is no focal disc pathology, central canal stenosis, or neural foraminal stenosis. T2-T3: There is no focal disc pathology, central canal stenosis, or neural foraminal stenosis. T3-T4: There is a 2.5 mm annular bulge indenting the anterior subarachnoid space, compromising the subarticular recesses and neural foramina with impingement of the emerging nerve roots. T4-T5: There is no focal disc pathology, central canal stenosis, or neural foraminal stenosis. T5-T6: There is no focal disc pathology, central canal stenosis, or neural foraminal stenosis. T6-T7: There is no focal disc pathology, central canal stenosis, or neural foraminal stenosis. T7-T8: There is A 3.2 mm annular bulge indenting the anterior subarachnoid space, compromising the subarticular recesses with impingement of the emerging nerve roots. T8-T9: There is no focal disc pathology, central canal stenosis, or neural foraminal stenosis. T9-10: There is no focal disc pathology, central canal stenosis, or neural foraminal stenosis. T10-T11: There is no focal disc pathology, central canal stenosis, or neural foraminal stenosis. T11-12: There is no focal disc pathology, central canal stenosis, or neural foraminal stenosis. The thoracic spinal cord appears normal, with no evidence of an abnormal signal. Paravertebral soft tissues appear normal. IMPRESSION: 1. Altered signals of the T3, T4, T5, T6, T7, T8, T9 and T10 vertebral bodies, with imaging features and pattern of enhancement also delineating paravertebral enhancement, most appreciated on the right side. Adjacent to the right upper ribs. Enhanced pedicles and lamina are also noted. Multiple discrete foci are noted at the posterior ribs. The multiplicity and signal characteristics are highly suggestive of marrow replacement disorder, e.g., metastatic disease. Further workup is recommended to justify this possibility. 2. Review of the prior CT study for the chest shows Bilateral dense breast parenchyma, More on the left side with macrocalcifications. Matches the given history of the underlying neoplastic process. 3. Correlation with PET/CT is recommended. 4. Spondylodegenerative thoracic disc disease. 5. Left nephrectomy. 6. T3-T4: There is a 2.5 mm annular bulge indenting the anterior subarachnoid space, compromising the subarticular recesses and neural foramina with impingement of the emerging nerve roots. 7. T7-T8: There is A 3.2 mm annular bulge indenting the anterior subarachnoid space, compromising the subarticular recesses with impingement of the emerging nerve roots. 8. The comparison matches the CT findings. Electronically signed by Familia Duncan 03-06-2025 7:48 PM MDM Narrative Patient was seen and evaluated as above in room C06. Review was performed of triage nursing notes and vital signs. I did review pertinent previous visits and patient history. After obtaining a thorough history and physical examination the above work up was performed. Patient presents to us today for evaluation of ongoing and worsening discomfort that originally was more right side of the anterior chest radiating into the upper back but now is more central chest radiating to the back. She was seen here in the ED a few days ago and underwent CTA of the chest as well as CT scan of the abdomen/pelvis. Incidentals were noted, however at that time no definitive etiology found on imaging. It was possible the patient's pain was musculoskeletal in nature. The patient did have abnormal UA that showed greater than 100,000 E. coli and Pseudomonas. When called today by clinical pharmacist patient noted no urinary symptoms but did note worsening pain to the chest/back area. I then spoke to the patient via phone, and recommended she return here for further assessment. Patient seems to be overall doing worse than when she was here just a few days ago. This is despite the recommended treatment course outlined on previous visit. The cyclobenzaprine she notes was no help to her symptoms. Noting the patient's worsening symptoms I did recommend return here to the ED for further evaluation. Options of care were discussed with the patient. IV access was established. Labs were drawn. I did discuss the case with the ED attending physician as well. No leukocytosis or concerning anemia. An EKG was performed revealing per my interpretation normal sinus rhythm at a rate of 87 bpm. QTc 421. QRS 88. No ST elevation on this rhythm tracing. This was compared to EKG dated 03/02/2025. I did call and spoke with Dr. Laws, radiologist regarding the patient's previous CT imaging (CTA chest, CT abd/pelvis) to ensure no additional findings. I spoke with him at 1601. We did review the imaging and at this time no additional findings noted. There are some degenerative thoracic spine findings but no fracture. I do believe that further evaluation via MRI of the thoracic spine is warranted. I do believe that with and without contrast at this time would be best as the patient's pain is otherwise unexplained but does seem to be potentially related to the thoracic spine as many other etiologies have been ruled out. I did review the MRI imaging, there is abnormal uptake noted in the thoracic spine. I did add on ESR, CRP. Patient again denies any trauma or injury. No recent infectious symptoms. No fevers or chills. She denies any history of spine surgery. MRI did result. Findings as above. Unfortunately this may represent metastatic disease. I reviewed these with the patient in detail. I discussed benefit versus risk of inpatient versus outpatient management. I do believe that further evaluation and management in the inpatient setting is warranted. Case discussed with Dr. Ivy, hospitalist service. Please refer to further documentation regarding her stay GCS: 15 In the evaluation and treatment of this patient the following differential diagnoses were entertained: Dissection, NM, PE, costochondritis, rib fracture, C-spine/T-spine etiology, among others. Impression & Plan Chest pain, History of breast cancer, Abnormal magnetic resonance imaging of thoracic spine, Intractable pain, Back pain Discharge Plan Visit Data Chief Complaint: Testing Request Stated Complaint: X-RAY REQ, DOC REF ED Provider: Naren Simpson ED Midlevel Provider: Vasile Arzola Discharge Problem: Chest pain, History of breast cancer, Abnormal magnetic resonance imaging of thoracic spine, Intractable pain, Back pain Patient Disposition: Admitted As Inpatient Condition: Good Discharge Instructions Interventions: ED Discharge Assessment Last Done: 03/06/25 21:53
[2025-03-06 16:19] LABS: Basophils # (auto) 0.07 K/uL (0.00-0.20); Basophils % (auto) 0.9 %; Eosinophils % (auto) 5.1 %; Hematocrit (blood only) 40.6 % (37.0-47.0); Hemoglobin 13.9 g/dl (12.0-16.0); Immature Granulocytes # (auto) 0.02 K/uL (0.01-0.20); Immature Granulocytes % (auto) 0.3 %; Lymphocytes # (auto) 1.74 K/uL (1.20-3.40); Mean Corpuscular Hemoglobin 31.7 pg (25.0-34.0); Mean Corpuscular Hgb Conc 34.2 g/dL (32.0-36.0); Mean Corpuscular Volume 92.7 fL (80.0-100.0); Mean Platelet Volume 8.7 fL (9.4-12.4); Monocytes # (auto) 0.61 K/uL (0.11-0.59); Monocytes % (auto) 7.7 %; Neutrophils # (auto) 5.08 K/uL (1.40-6.50); Platelet Count 272 K/uL (130-400); RDW Coefficient of Variation 13.2 % (11.5-14.5); RDW Standard Deviation 45.4 fL (36.4-46.3); Red Blood Count 4.38 M/uL (4.20-5.40); White Blood Count 7.92 K/ul (4.8-10.8)
[2025-03-06 16:37] LABS: Albumin Globulin Ratio 1.2 (0.9-2); Albumin Level 4.6 gm/dl (3.4-5.0); BUN Creatinine Ratio 20.7 (10-20); Bilirubin,Total 0.5 mg/dl (0.2-1.0); Calcium 10.6 mg/dl (8.6-10.3); Creatinine Clr Calc Pharmacy 64.3 ml/min; Globulin 3.8 gm/dl (2.5-4.0); Potassium 3.7 mmol/L (3.5-5.1); Total Protein 8.4 gm/dl (6.0-8.3)
--- NOTE | 2025-03-06 16:40 | XRay Report ---
Chest radiograph, one view History: Chest pain Comparison: 03/02/2025 Findings: Single AP view of the chest performed. No focal consolidation or pleural effusion. No pneumothorax. The cardiomediastinal silhouette is within normal limits. Normal pulmonary vascularity. No evidence for lymphadenopathy. No visualized bony or soft tissue abnormality. Impression: Normal chest radiograph Electronically signed by Derrick York 03-06-2025 4:39 PM
[2025-03-06 16:47] LABS: Troponin I High Sensitivity 4.4 pg/ml (0-14)
[2025-03-06 16:53] LABS: Partial Thromboplastin Ratio 0.9; Partial Thromboplastin Time 25 Seconds (21-31); Prothrombin Time 10.7 Seconds (9.0-12.0)
[2025-03-06] MEDS: ACETAMINOPHEN 500 MG TAB PO STA (17:15)
--- NOTE | 2025-03-06 17:43 | Electrocardiogram Report ---
Test Reason : Blood Pressure : */* mmHG Vent. Rate : 87 BPM Atrial Rate : 87 BPM P-R Int : 154 ms QRS Dur : 88 ms QT Int : 350 ms P-R-T Axes : 57 30 22 degrees QTcB Int : 421 ms Normal sinus rhythm Normal ECG When compared with ECG of 02-Mar-2025 17:01, Nonspecific T wave abnormality, worse in Anterior leads Confirmed by Derrick Taylor ([id number]) on 03/06/2025 5:43:08 PM Referred By: Confirmed By: Derrick Taylor
[2025-03-06 17:58] LABS: Appearance Urine Clear (Clear); Bacteria Urine Automated None Seen (None Seen); Bilirubin Urine Negative (Negative); Blood Urine 1+ (Negative); Cast Urine Automated 0-2 /lpf (0-2); Color Urine Yellow; Epithelial Cell Urine Auto 0-2 /hpf (0-2); Glucose Urine UA Negative (Negative); Ketones Urine Negative (Negative); Leukocyte Esterase Urine Trace (Negative); Nitrite Urine Negative (Negative); Protein Urine Negative (Negative); RBC Urine Automated 0-2 /hpf (0-2); Specific Gravity Urine 1.006 (1.000-1.030); Urobilinogen Urine Negative (Negative); WBC Urine Automated 0-5 /hpf (0-5)
[2025-03-06] MEDS: GADOBUTROL 65ML VIAL IV ONE (18:30)
--- NOTE | 2025-03-06 19:13 | Emergency Department Note ---
ED Visit Note Physician Evaluation Note: Patient was seen in conjunction with the midlevel provider. Please see the midlevel provider note for full details of the patient's visit. I have personally evaluated and examined this patient. Patient presented to the ED with midthoracic back pain that radiates towards the right side of her chest. On my examination the patient had focal tenderness in the area of the mid thoracic spine, decision was made to obtain MRI imaging of the thoracic spine with and without contrast as well as routine chest pain workup including EKG, chest x-ray, and lab work. Lab work is largely reassuring, troponin is negative, EKG does not show any evidence of any acute ischemic changes. Chest x-ray does not show any evidence of any pneumothorax or acute pathology. MRI imaging of the thoracic spine with and without contrast was obtained that shows multiple signaling abnormalities throughout the vertebral bodies concerning for possibly metastatic disease. There is also annular bulging in the area where the patient is having pain impinging the exiting nerve roots. Given the degree of the patient's pain with these new findings on MRI of the thoracic spine, plan will be for admission to the hospitalist service for pain control and likely hematology/oncology consultation. Patient was placed for admission in stable condition. EKG: (As interpreted by myself) Rate: 87 Rhythm: Normal sinus rhythm Intervals: Within normal limits ST changes: No ST elevation Time: 1559 I agree with assessment and plan of CORNELIUS Bailey DO .
--- NOTE | 2025-03-06 19:49 | Magnetic Resonance Report ---
EXAM: MR thoracic spine wo/w con CLINICAL HISTORY: Mid chest and Mid back pain TECHNIQUE: Different pulse sequences were performed in different planes for the thoracic spine without and with contrast. 6 ml Gadavist was injected intravenously without complications. Images were sent through PACS for diagnostic interpretation. COMPARISON: CR study dated 12/15/2022, and CT dated 03/02/2025. FINDINGS: Preserved physiological kyphosis. There is no obvious spondylolysis or listhesis. Altered signals of the T3, T4, T5, T6, T7, T8, T9 and T10 vertebral bodyExhibiting low signals on T1 WI and bright signals on T2 on STIR WI.With appreciable enhancement after Gd-DTPA injection, also delineating paravertebral enhancement, most appreciated on the right side. Adjacent to the right upper ribs. Enhanced pedicles and lamina are also noted. Multiple discrete foci are noted at the Posterior ribs. The multiplicity and signal characteristics are highly suggestive of marrow replacement disorder, e.g., metastatic disease. Further workup is recommended to justify this possibility. Review of the prior CT study for the chest shows Bilateral dense breast parenchyma, More on the left side with macrocalcifications. Matches the given history of the underlying neoplastic process. Correlation with PET/CT is recommended. The scanned intervertebral discs show variable degrees of degeneration, denoted by low signal intensity on T2 WI with a relative reduction of their heights. Left nephrectomy. Level by Level analysis: T1-T2: There is no focal disc pathology, central canal stenosis, or neural foraminal stenosis. T2-T3: There is no focal disc pathology, central canal stenosis, or neural foraminal stenosis. T3-T4: There is a 2.5 mm annular bulge indenting the anterior subarachnoid space, compromising the subarticular recesses and neural foramina with impingement of the emerging nerve roots. T4-T5: There is no focal disc pathology, central canal stenosis, or neural foraminal stenosis. T5-T6: There is no focal disc pathology, central canal stenosis, or neural foraminal stenosis. T6-T7: There is no focal disc pathology, central canal stenosis, or neural foraminal stenosis. T7-T8: There is A 3.2 mm annular bulge indenting the anterior subarachnoid space, compromising the subarticular recesses with impingement of the emerging nerve roots. T8-T9: There is no focal disc pathology, central canal stenosis, or neural foraminal stenosis. T9-10: There is no focal disc pathology, central canal stenosis, or neural foraminal stenosis. T10-T11: There is no focal disc pathology, central canal stenosis, or neural foraminal stenosis. T11-12: There is no focal disc pathology, central canal stenosis, or neural foraminal stenosis. The thoracic spinal cord appears normal, with no evidence of an abnormal signal. Paravertebral soft tissues appear normal. IMPRESSION: 1. Altered signals of the T3, T4, T5, T6, T7, T8, T9 and T10 vertebral bodies, with imaging features and pattern of enhancement also delineating paravertebral enhancement, most appreciated on the right side. Adjacent to the right upper ribs. Enhanced pedicles and lamina are also noted. Multiple discrete foci are noted at the posterior ribs. The multiplicity and signal characteristics are highly suggestive of marrow replacement disorder, e.g., metastatic disease. Further workup is recommended to justify this possibility. 2. Review of the prior CT study for the chest shows Bilateral dense breast parenchyma, More on the left side with macrocalcifications. Matches the given history of the underlying neoplastic process. 3. Correlation with PET/CT is recommended. 4. Spondylodegenerative thoracic disc disease. 5. Left nephrectomy. 6. T3-T4: There is a 2.5 mm annular bulge indenting the anterior subarachnoid space, compromising the subarticular recesses and neural foramina with impingement of the emerging nerve roots. 7. T7-T8: There is A 3.2 mm annular bulge indenting the anterior subarachnoid space, compromising the subarticular recesses with impingement of the emerging nerve roots. 8. The comparison matches the CT findings. Electronically signed by Familia Duncan 03-06-2025 7:48 PM
--- NOTE | 2025-03-06 20:51 | History & Physical Report ---
Date of Service March 06, 2025 Assessment & Plan (1) Intractable pain: (2) Abnormal magnetic resonance imaging of thoracic spine: (3) History of breast cancer: (4) UTI (urinary tract infection): Plan 59-year-old female with history of breast cancer presenting with ongoing pain in the right back, right anterior chest. MRI findings as above with concern for possible metastatic disease #Intractable back pain Tylenol 1 g p.o. every 8 hours scheduled Flexeril 5 mg p.o. every 8 hours as needed Lidoderm patch daily #Abnormal MRIconcerning for possible metastatic disease. Patient with history of breast cancer status post radiation therapy status post Arimidex therapy. Saundra adame has had follow-up images that have all been unremarkable including mammogram, breast CT and breast MRI. CT of the chest performed during her last hospital stay on 03/02/2025 with no mention of suspicious spinal lesionsthey did state degenerative changes were present. Of note, patient does have a mildly elevated calcium at this time at 10.6. Elevation of ESR and CRP as well Consult oncology. Assistance appreciated Consult Ortho spine. This is appreciated Patient will need a PET scan Consider radiation oncology consultation for targeted treatment if pain continues to be poorly controlled #UTIpatient diagnosed with UTI during her last ER stay. Was prescribed 7 days of Keflex which she has been taking without difficulty Continue Keflex 500 mg p.o. twice daily to completion DVT prophylaxis with Lovenox History of Present Illness Chief Complaint: Back pain, chest pain Primary Care Provider: Yina Flanagan DO Sona Whyte is a 59-year-old female with history of invasive ductal carcinoma of the left breast status post lumpectomy and XRT status post Arimidex therapy returning to the ER with right back pain and right anterior chest pain. Patient was seen in the ER several days ago secondary to similar pain. Exam at that time consistent with posterior displacement of rib. Patient was discharged home with recommendations to complete conservative therapy with pain control, Lidoderm, muscle relaxers. Patient was contacted today due to Pseudomonas present in urine culture. Upon further questioning patient stated that her pain has continued and gotten somewhat worse. She has been having significant discomfort with deep breathing and minimal movement. No additional complaints Patient denies numbness/tingling/weakness Denies fever, chills, sweats, nausea, recent trauma, recent skin infection Allergies Allergy/AdvReac Type Severity Reaction Status Date / Time aloe Allergy Mild Rash Verified 12/14/24 07:30 morphine Allergy Mild GI Verified 12/14/24 07:30 SYMPTOMS - nausea Home Medications Medication Instructions Recorded Confirmed Type cephalexin 500 mg capsule 500 mg PO BID 7 days #14 caps 03/02/25 03/06/25 Rx cyclobenzaprine 5 mg tablet 5 mg PO Q8H PRN muscle spasm #15 03/02/25 03/06/25 Rx tabs Past Med/Surg History Problem List Back pain (Acute) Intractable pain (Acute) Abnormal magnetic resonance imaging of thoracic spine (Acute) History of breast cancer (Acute) Chest pain (Acute) Rib pain Ectatic aorta (Acute) UTI (urinary tract infection) (Acute) Upper back pain on right side (Acute) Right-sided chest wall pain (Acute) History of left breast cancer 02/2017--sx/radiation/oral chemo Vitamin D deficiency Pulmonary nodule Osteopenia Nephrolithiasis Dupuytren contracture Arthritis of carpometacarpal (CMC) joint of right thumb 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 completed Arimidex therapy May 2017-Nov 2022 Breast cancer (02/03/17) "Development of a white nipple discharge on the right breast Status post abnormal left breast mammogram 02/02/2017 Status post core needle biopsies 02/03/2017 revealing invasive ductal carcinoma grade 1 Estrogen receptor was positive, progesterone receptor positive, and HER-2/karen negative Status post partial mastectomy and sentinel lymph node biopsy 02/26/2017 Stage pT1c pN0 positive lateral deep margin Status post reexcision 03/18/2017, benign Oncotype DX score of 16 Status post completion of radiation therapy 06/04/2017. She received 5130 cGy utilizing hypo-fractionation." On 04/14/17 12:18 Tamika Vera wrote "Development of a white nipple discharge on the right breast Status post abnormal left breast mammogram 02/02/2017 Status post core needle biopsies 02/03/2017 revealing invasive ductal carcinoma grade 1 Estrogen receptor was positive, progesterone receptor positive, and HER-2/karen negative Status post partial mastectomy and sentinel lymph node biopsy 02/26/2017 Stage pT1c pN0 positive lateral deep margin Status post reexcision 03/18/2017, benign Oncotype DX score of 16 " Osteoarthritis Anemia Surgical History S/P tubal ligation History of dilatation and curettage History of kidney surgery left kidney stent placed, then later kidney removed History of colonoscopy History of left breast biopsy malignant History of wisdom tooth extraction History of left nephrectomy (~2010) History of lumpectomy of left breast Secondary Low grade DCIS, invasive mammary carcinoma, 02/26/2017 H/O tubal ligation S/P left knee arthroscopy Family History Mother COPD (chronic obstructive pulmonary disease) Hypertension Asthma Diabetes Father Stroke, Onset Age: 57 Brother Diabetes Brother Myocardial infarction, Onset Age: 58 Other No family history of adverse response to anesthesia Denies family history of Ovarian cancer Prostate cancer Breast cancer Colorectal cancer Social History Smoking Status: Never smoker Tobacco Type: Cigarettes Age Started Using Tobacco: 14; Age Quit Using Tobacco: 46; packs per day: 1; Second Hand Exposure: Yes (mom smoked); Do You Dip or Chew Tobacco: No (quit a long time ago); Hx Alcohol Use: Yes Alcohol type: hard liquor Alcohol Intake Frequency: Monthly or Less Hx Substance Use: Yes (smokes marijuana occasionally ) Preferred Language: Pashto Communication Ability: Effective Visual Impairment: No Limitations Hearing Ability: Normal Wire Frame Maker Required: No Beliefs That Will Affect Care: None marital status: Current Living Situation: Significant Other current occupational status: employed 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 Feels Safe at Home: Yes Childhood Exposure to Second-Hand Smoke: Yes Diet: regular Diet Comment: regular caffeine: Yes during the past year weight has: remained stable Dental Care, Regularly: Yes Physical Activity Frequency: Daily Seatbelt Use: always Sunscreen Use: Yes Assistive Devices: None Review of Systems Review of Systems: All systems reviewed & are unremarkable except as noted in HPI & below Physical Exam Physical Exam: General: patient resting comfortably, NAD, non-toxic in appearance, AA&O x 4 Skin: warm, dry, intact, Pustules present on bilateral palms HEENT: NC/AT, PERRL, EOMI, anicteric sclera, conjunctiva without injection, external ear normal to inspection and nontender, nares patent, moist mucus membranes, dentition intact, no oropharyngeal lesions, neck supple, trachea midline, no LAD, no thyromegaly, no JVD Heart: +S1/S2, regular, no m/r/g Pain with palpation of right anterior chest and right posterior back Lungs: equal air entry bilaterally, no rales/rhonchi/wheezes Abd: +BS, soft, NT/ND, no masses/organomegaly/ascites Ext: warm, 2+ pulses in UE/LE bilaterally, no clubbing/cyanosis or edema Neuro: nonfocal, patient AA&O x 4, speech intact, no facial droop, moving all extremities on command with equal strength 5/5 Results & Data Results & Data Vital Signs (Past 12 Hours) Vital Signs Temp Pulse Pulse Resp BP BP Pulse Ox 03/06/25 20:09 80 03/06/25 19:00 75 18 151/98 H 96 03/06/25 17:00 82 16 150/106 H 95 03/06/25 16:59 80 16 160/100 H 96 03/06/25 16:54 86 03/06/25 15:59 90 13 97 03/06/25 15:31 36.6 C 90 13 162/95 H 97 O2 Del Method 03/06/25 20:09 03/06/25 19:00 Room Air 03/06/25 17:00 03/06/25 16:59 03/06/25 16:54 03/06/25 15:59 Room Air 03/06/25 15:31 Room Air Laboratory Results Laboratory Results WBC 7.92 K/ul (4.8-10.8) 03/06/25 16:00 RBC 4.38 M/uL (4.20-5.40) 03/06/25 16:00 Hgb 13.9 g/dl (12.0-16.0) 03/06/25 16:00 Hct 40.6 % (37.0-47.0) 03/06/25 16:00 MCV 92.7 fL (80.0-100.0) 03/06/25 16:00 MCH 31.7 pg (25.0-34.0) 03/06/25 16:00 MCHC 34.2 g/dL (32.0-36.0) 03/06/25 16:00 RDW Std Deviation 45.4 fL (36.4-46.3) 03/06/25 16:00 RDW Coeff of Camron 13.2 % (11.5-14.5) 03/06/25 16:00 Plt Count 272 K/uL (130-400) 03/06/25 16:00 MPV 8.7 fL (9.4-12.4) L 03/06/25 16:00 Immature Gran % (Auto) 0.3 % 03/06/25 16:00 Neut % (Auto) 64.0 % 03/06/25 16:00 Lymph % (Auto) 22.0 % 03/06/25 16:00 [place] % (Auto) 7.7 % 03/06/25 16:00 Eos % (Auto) 5.1 % 03/06/25 16:00 Baso % (Auto) 0.9 % 03/06/25 16:00 Neut # (Auto) 5.08 K/uL (1.40-6.50) 03/06/25 16:00 Lymph # (Auto) 1.74 K/uL (1.20-3.40) 03/06/25 16:00 [place] # (Auto) 0.61 K/uL (0.11-0.59) H 03/06/25 16:00 Eos # (Auto) 0.40 K/uL (0.00-0.50) 03/06/25 16:00 Baso # (Auto) 0.07 K/uL (0.00-0.20) 03/06/25 16:00 Immature Gran # (Auto) 0.02 K/uL (0.01-0.20) 03/06/25 16:00 ESR 58 mm/hr (0-30) H 03/06/25 16:00 PT 10.7 Seconds (9.0-12.0) 03/06/25 16:00 INR 1.0 (0.9-1.1) 03/06/25 16:00 APTT 25 Seconds (21-31) 03/06/25 16:00 PTT Ratio 0.9 03/06/25 16:00 Sodium 138 mmol/L (136-145) 03/06/25 16:00 Potassium 3.7 mmol/L (3.5-5.1) 03/06/25 16:00 Chloride 101 mmol/L (98-107) 03/06/25 16:00 Carbon Dioxide 30 mmol/L (21-32) 03/06/25 16:00 Anion Gap 7 (3-11) 03/06/25 16:00 BUN 17 mg/dl (6-23) 03/06/25 16:00 Creatinine 0.82 mg/dl (0.6-1.2) 03/06/25 16:00 Est Cr Clr Drug Dosing 64.3 ml/min 03/06/25 16:00 eGFR 81.84 03/06/25 16:00 BUN/Creatinine Ratio 20.7 (10-20) H 03/06/25 16:00 Glucose 133 mg/dl (70-99(Fasting)) H 03/06/25 16:00 Calcium 10.6 mg/dl (8.6-10.3) H 03/06/25 16:00 Total Bilirubin 0.5 mg/dl (0.2-1.0) 03/06/25 16:00 AST 19 U/L (13-39) 03/06/25 16:00 ALT 11 U/L (7-52) 03/06/25 16:00 Alkaline Phosphatase 55 U/L (34-104) 03/06/25 16:00 Troponin I High Sens 4.4 pg/ml (0-14) 03/06/25 16:00 C-Reactive Protein 2.47 mg/dl (0-0.5) H 03/06/25 16:00 Total Protein 8.4 gm/dl (6.0-8.3) H 03/06/25 16:00 Albumin 4.6 gm/dl (3.4-5.0) 03/06/25 16:00 Globulin 3.8 gm/dl (2.5-4.0) 03/06/25 16:00 Albumin/Globulin Ratio 1.2 (0.9-2) 03/06/25 16:00 Lipase 39 U/L (11-82) 03/06/25 16:00 Procalcitonin < 0.02 ng/ml (0-0.5) 03/06/25 16:00 Urine Color Yellow 03/06/25 16:58 Urine Appearance Clear (Clear) 03/06/25 16:58 Urine pH 6.0 (4.5-7.5) 03/06/25 16:58 Ur Specific [place] 1.006 (1.000-1.030) 03/06/25 16:58 Urine Protein Negative (Negative) 03/06/25 16:58 Urine Glucose (UA) Negative (Negative) 03/06/25 16:58 Urine Ketones Negative (Negative) 03/06/25 16:58 Urine Blood 1+ (Negative) H 03/06/25 16:58 Urine Nitrite Negative (Negative) 03/06/25 16:58 Urine Bilirubin Negative (Negative) 03/06/25 16:58 Urine Urobilinogen Negative (Negative) 03/06/25 16:58 Ur Leukocyte Esterase Trace (Negative) H 03/06/25 16:58 Urine WBC (Auto) 0-5 /hpf (0-5) 03/06/25 16:58 Urine RBC (Auto) 0-2 /hpf (0-2) 03/06/25 16:58 U Hyaline Cast (Auto) 0-2 /lpf (0-2) 03/06/25 16:58 U Epithel Cells (Auto) 0-2 /hpf (0-2) 03/06/25 16:58 Urine Bacteria (Auto) None Seen (None Seen) 03/06/25 16:58 Impressions Chest X-Ray 03/06/25 15:56 Chest radiograph, one view History: Chest pain Comparison: 03/02/2025 Findings: Single AP view of the chest performed. No focal consolidation or pleural effusion. No pneumothorax. The cardiomediastinal silhouette is within normal limits. Normal pulmonary vascularity. No evidence for lymphadenopathy. No visualized bony or soft tissue abnormality. Impression: Normal chest radiograph Electronically signed by Derrick York 03-06-2025 4:39 PM Thoracic Spine MRI 03/06/25 16:12 EXAM: MR thoracic spine wo/w con CLINICAL HISTORY: Mid chest and Mid back pain TECHNIQUE: Different pulse sequences were performed in different planes for the thoracic spine without and with contrast. 6 ml Gadavist was injected intravenously without complications. Images were sent through PACS for diagnostic interpretation. COMPARISON: CR study dated 12/15/2022, and CT dated 03/02/2025. FINDINGS: Preserved physiological kyphosis. There is no obvious spondylolysis or listhesis. Altered signals of the T3, T4, T5, T6, T7, T8, T9 and T10 vertebral bodyExhibiting low signals on T1 WI and bright signals on T2 on STIR WI.With appreciable enhancement after Gd-DTPA injection, also delineating paravertebral enhancement, most appreciated on the right side. Adjacent to the right upper ribs. Enhanced pedicles and lamina are also noted. Multiple discrete foci are noted at the Posterior ribs. The multiplicity and signal characteristics are highly suggestive of marrow replacement disorder, e.g., metastatic disease. Further workup is recommended to justify this possibility. Review of the prior CT study for the chest shows Bilateral dense breast parenchyma, More on the left side with macrocalcifications. Matches the given history of the underlying neoplastic process. Correlation with PET/CT is recommended. The scanned intervertebral discs show variable degrees of degeneration, denoted by low signal intensity on T2 WI with a relative reduction of their heights. Left nephrectomy. Level by Level analysis: T1-T2: There is no focal disc pathology, central canal stenosis, or neural foraminal stenosis. T2-T3: There is no focal disc pathology, central canal stenosis, or neural foraminal stenosis. T3-T4: There is a 2.5 mm annular bulge indenting the anterior subarachnoid space, compromising the subarticular recesses and neural foramina with impingement of the emerging nerve roots. T4-T5: There is no focal disc pathology, central canal stenosis, or neural foraminal stenosis. T5-T6: There is no focal disc pathology, central canal stenosis, or neural foraminal stenosis. T6-T7: There is no focal disc pathology, central canal stenosis, or neural foraminal stenosis. T7-T8: There is A 3.2 mm annular bulge indenting the anterior subarachnoid space, compromising the subarticular recesses with impingement of the emerging nerve roots. T8-T9: There is no focal disc pathology, central canal stenosis, or neural foraminal stenosis. T9-10: There is no focal disc pathology, central canal stenosis, or neural foraminal stenosis. T10-T11: There is no focal disc pathology, central canal stenosis, or neural foraminal stenosis. T11-12: There is no focal disc pathology, central canal stenosis, or neural foraminal stenosis. The thoracic spinal cord appears normal, with no evidence of an abnormal signal. Paravertebral soft tissues appear normal. IMPRESSION: 1. Altered signals of the T3, T4, T5, T6, T7, T8, T9 and T10 vertebral bodies, with imaging features and pattern of enhancement also delineating paravertebral enhancement, most appreciated on the right side. Adjacent to the right upper ribs. Enhanced pedicles and lamina are also noted. Multiple discrete foci are noted at the posterior ribs. The multiplicity and signal characteristics are highly suggestive of marrow replacement disorder, e.g., metastatic disease. Further workup is recommended to justify this possibility. 2. Review of the prior CT study for the chest shows Bilateral dense breast parenchyma, More on the left side with macrocalcifications. Matches the given history of the underlying neoplastic process. 3. Correlation with PET/CT is recommended. 4. Spondylodegenerative thoracic disc disease. 5. Left nephrectomy. 6. T3-T4: There is a 2.5 mm annular bulge indenting the anterior subarachnoid space, compromising the subarticular recesses and neural foramina with impingement of the emerging nerve roots. 7. T7-T8: There is A 3.2 mm annular bulge indenting the anterior subarachnoid space, compromising the subarticular recesses with impingement of the emerging nerve roots. 8. The comparison matches the CT findings. Electronically signed by Familia Duncan 03-06-2025 7:48 PM ECG Additional Comments: DICTATED BY: Derrick Taylor MD Test Reason : Blood Pressure : */* mmHG Vent. Rate : 87 BPM Atrial Rate : 87 BPM P-R Int : 154 ms QRS Dur : 88 ms QT Int : 350 ms P-R-T Axes : 57 30 22 degrees QTcB Int : 421 ms Normal sinus rhythm Normal ECG When compared with ECG of 02-Mar-2025 17:01, Nonspecific T wave abnormality, worse in Anterior leads Confirmed by Derrick Taylor ([id number]) on 03/06/2025 5:43:08 PM Referred By: Confirmed By: Derrick Taylor Code Status & VTE Plan VTE Prophylaxis Plan VTE Prophylaxis will be ordered: Yes PG Care Time/CCT Total # of Minutes Spent Total Time Spent with Patient: Total time spent is greater than 50% in coordination of care (as documented) at patient's floor/unit and/or counseling patient: Coding Level of Care Code 58405 INT INP/OBS CARE 3/75MIN Diagnoses Intractable pain R52 Abnormal magnetic resonance imaging of thoracic spine R93.7 History of breast cancer Z85.3 UTI (urinary tract infection) N39.0
[2025-03-06] MEDS ORDERED: ONDANSETRON INJ 2 MG/ML 2 ML VIAL IV PRN (22:20)
[2025-03-06] MEDS ORDERED: DOCUSATE SODIUM 100 MG CAP PO PRN (22:20)
[2025-03-06 22:38] LABS: C Reactive Protein 2.47 mg/dl (0-0.5)
[2025-03-06] MEDS: cephALEXin 500 MG CAP PO SCH (23:22)
[2025-03-06] MEDS: ENOXAPARIN INJ 40 MG/0.4 ML SYR SQ SCH (23:22)
[2025-03-06] MEDS: ACETAMINOPHEN 500 MG TAB PO SCH (23:22)
[2025-03-06] MEDS: LIDOCAINE 5% 1 PATCH TD STA (23:23)
[2025-03-07] MEDS: CYCLOBENZAPRINE HCL 10 MG TAB PO PRN (04:51)
[2025-03-07] MEDS: KETOROLAC TROMETHAMINE 15 MG/ML VIAL IV ONE (06:44)
[2025-03-07 07:54] LABS: Hematocrit (blood only) 37.2 % (37.0-47.0); Mean Corpuscular Hemoglobin 31.6 pg (25.0-34.0); Mean Corpuscular Hgb Conc 34.9 g/dL (32.0-36.0); Mean Corpuscular Volume 90.5 fL (80.0-100.0); Mean Platelet Volume 8.9 fL (9.4-12.4); Platelet Count 250 K/uL (130-400); RDW Coefficient of Variation 13.2 % (11.5-14.5); RDW Standard Deviation 44.1 fL (36.4-46.3); Red Blood Count 4.11 M/uL (4.20-5.40); White Blood Count 5.59 K/ul (4.8-10.8)
[2025-03-07 08:13] LABS: Calcium 9.6 mg/dl (8.6-10.3); Creatinine Clr Calc Pharmacy 87.6 ml/min; Potassium 3.8 mmol/L (3.5-5.1)
--- NOTE | 2025-03-07 10:13 | Orthopedic Consultation ---
<Statement entered by Gianni Dominique MD - 03/07/25 20:29> Case discussed with Nicholas Gannon PA-C, I agree with plan as documented. No evidence of structural instability of spine. Would benefit from IR biopsy to confirm metastasis to spine. Will defer to oncology on workup, no surgery planned. Date of Service March 07, 2025 Assessment & Plan (1) Thoracic back pain: (2) Abnormal magnetic resonance imaging of thoracic spine: (3) History of left breast cancer: Plan Patient will also be visited by Dr. Dominique. Currently, patient is neurologically intact and is not demonstrating any particular deficits, and with review of recent MRI and CT imaging demonstrating that the vertebral bodies are intact with no bony destruction or evidence for instability, thus no orthopedic spine surgery is indicated. - Recommend interventional radiology attempt to biopsy 1 or more of the concerning areas in the thoracic spine to confirm metastatic disease. - Placed consult for pain management for possible consideration of procedural intervention, whether trigger point injections or setting up for outpatient procedure if found warranted. - Also consulted radiation oncology due to the possibility that these are metastatic lesions to the thoracic spine from the patient's previous left-sided breast cancer. If biopsy confirms presence of METS, then would recommend therapeutic radiation. - Lifting restrictions of no greater than 15 pounds. History of Present Illness Reason for Consultation: thoracic back pain; question of breast METS to spine Requesting Physician: . Attending Physician: Esteban Arrieta MD Hospitalist note 03/06/2025: Sona Whyte is a 59-year-old female with history of invasive ductal carcinoma of the left breast status post lumpectomy and XRT status post Arimidex therapy (February 2017) returning to the ER with right back pain and right anterior chest pain. Patient was seen in the ER several days ago secondary to similar pain. Exam at that time consistent with posterior displacement of rib. Patient was discharged home with recommendations to complete conservative therapy with pain control, Lidoderm, muscle relaxers. Patient was contacted today due to Pseudomonas present in urine culture. Upon further questioning patient stated that her pain has continued and gotten somewhat worse. She has been having significant discomfort with deep breathing and minimal movement. --------- Patient did undergo thoracic spine MRI, which demonstrated altered signals of the T3, T4, T5, T6, T7, T8, T9 and T10 vertebral bodies, with imaging features and pattern of enhancement also delineating paravertebral enhancement. Radiology reported that the multiplicity and signal characteristics are highly suggestive of marrow replacement disorder, e.g., metastatic disease. [facility]ospine was consulted for further management. Today, the patient notes that her thoracic region back pain is improved with a combination of Toradol, Tylenol, and Flexeril. She seems to be mostly noting chest pain and a sort of tightness or shortness of breath sensation, which is currently the most concerning symptom for her. Patient says that she has had this back pain ever since December earlier this year. Again, she admits to a history of left breast cancer, and did undergo a lumpectomy radiation for this around February 2017. She notes no recent issues or concerns surrounding her previous breast cancer diagnosis. Patient does admit to pain that travels from her thoracic spine region and anteriorly into the deep chest, but she denies any symptoms that radiate into either upper extremity, or around into the axilla or flanks. She also denies any radicular type symptoms into either lower extremity. Patient denies any balance/coordination issues, as well as bowel/bladder incontinence and saddle anesthesia. She and her make note of some intermittent issues with dropping some things, and that she had a spasm in her left hand that caused it to claw, but this was about a year ago, and only happened on 1 occasion. Allergies Allergy/AdvReac Type Severity Reaction Status Date / Time aloe Allergy Mild Rash Verified 12/14/24 07:30 morphine Allergy Mild GI Verified 12/14/24 07:30 SYMPTOMS - nausea Home Medications Medication Instructions Recorded Confirmed Type cephalexin 500 mg capsule 500 mg PO BID 7 days #14 caps 03/02/25 03/06/25 Rx cyclobenzaprine 5 mg tablet 5 mg PO Q8H PRN muscle spasm #15 03/02/25 03/06/25 Rx tabs Past Med/Surg History Problem List (Updated 03/07/25 @ 20:30 by Gianni Dominique MD) Thoracic back pain Back pain (Acute) Intractable pain (Acute) Abnormal magnetic resonance imaging of thoracic spine (Acute) History of breast cancer (Acute) Chest pain (Acute) Rib pain Ectatic aorta (Acute) UTI (urinary tract infection) (Acute) Upper back pain on right side (Acute) Right-sided chest wall pain (Acute) History of left breast cancer 02/2017--sx/radiation/oral chemo Vitamin D deficiency Pulmonary nodule Osteopenia Nephrolithiasis Dupuytren contracture Arthritis of carpometacarpal (CMC) joint of right thumb 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 completed Arimidex therapy May 2017-Nov 2022 Breast cancer (02/03/17) "Development of a white nipple discharge on the right breast Status post abnormal left breast mammogram 02/02/2017 Status post core needle biopsies 02/03/2017 revealing invasive ductal carcinoma grade 1 Estrogen receptor was positive, progesterone receptor positive, and HER-2/karen negative Status post partial mastectomy and sentinel lymph node biopsy 02/26/2017 Stage pT1c pN0 positive lateral deep margin Status post reexcision 03/18/2017, benign Oncotype DX score of 16 Status post completion of radiation therapy 06/04/2017. She received 5130 cGy utilizing hypo-fractionation." On 04/14/17 12:18 Tamika Vera wrote "Development of a white nipple discharge on the right breast Status post abnormal left breast mammogram 02/02/2017 Status post core needle biopsies 02/03/2017 revealing invasive ductal carcinoma grade 1 Estrogen receptor was positive, progesterone receptor positive, and HER-2/karen negative Status post partial mastectomy and sentinel lymph node biopsy 02/26/2017 Stage pT1c pN0 positive lateral deep margin Status post reexcision 03/18/2017, benign Oncotype DX score of 16 " Osteoarthritis Anemia Surgical History S/P tubal ligation History of dilatation and curettage History of kidney surgery left kidney stent placed, then later kidney removed History of colonoscopy History of left breast biopsy malignant History of wisdom tooth extraction History of left nephrectomy (~2010) History of lumpectomy of left breast Secondary Low grade DCIS, invasive mammary carcinoma, 02/26/2017 H/O tubal ligation S/P left knee arthroscopy Family History Mother COPD (chronic obstructive pulmonary disease) Hypertension Asthma Diabetes Father Stroke, Onset Age: 57 Brother Diabetes Brother Myocardial infarction, Onset Age: 58 Other No family history of adverse response to anesthesia Denies family history of Ovarian cancer Prostate cancer Breast cancer Colorectal cancer Social History Smoking Status: Former smoker Tobacco Type: Cigarettes Age Started Using Tobacco: 14; Age Quit Using Tobacco: 46; packs per day: 1; Second Hand Exposure: Yes; Do You Dip or Chew Tobacco: No; Hx Alcohol Use: Yes Alcohol type: hard liquor Alcohol Intake Frequency: Monthly or Less Hx Substance Use: No Preferred Language: German Communication Ability: Effective Visual Impairment: No Limitations Hearing Ability: Normal Convention Manager Required: No Beliefs That Will Affect Care: None marital status: Current Living Situation: Spouse current occupational status: employed 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 Physical Exam GENERAL: Speech and cognition is intact. Mood and affect is appropriate. In no acute distress. HEAD: Normocephalic; atraumatic. NECK: Full ROM; trachea is midline. CHEST: Regular chest respiration and excursion. Indicates pain to bilateral chest. EXTREMITIES: Full ROM and +5 strength of upper extremities. No TTP. Distal sensation and pulses intact bilaterally. BACK: + Tenderness diffusely to thoracic midline and paraspinal. No lumbosacral tenderness. NEURO: CN II-XII grossly intact with no focal deficits noted.Normal gait. Awake, alert, and oriented x 3. C5 - C8 w/ intact sensation bilaterally. Sensation intact to light touch of the bilateral L2-S1 dermatomes. Brachioradialis reflex R +3 L +3 Biceps reflex R +3 L +3 Triceps reflex R +2 L +2 SKIN: No lesions, erythema, or rashes noted. Upper extremity resisted strength testing: R elbow flexion - 5/5 L elbow flexion - 5/5 R elbow extension - 5/5 L elbow extension - 5/5 R shoulder abduction - 5/5 L shoulder abduction - 5/5 R wrist extension - 5/5 L wrist extension - 5/5 R wrist flexion - 5/5 L wrist flexion - 5/5 R hand intrinsics - 5/5 L hand intrinsics - 5/5 R 5th digit ADM - 5/5 L 5th digit ADM - 5/5 Special tests: Caldwell's test mild positive left, negative right Negative Wartenberg sign bilateral Negative Eli sign bilateral LOWER EXTREMITIES: R Hip flexion 5/5; hip extension 5/5; knee extension 5/5; knee flexion 5/5; ankle dorsiflexion 5/5; ankle plantar flexion 5/5; EHL 5/5 L Hip flexion 5/5; hip extension 5/5; knee extension 5/5; knee flexion 5/5; ankle dorsiflexion 5/5; ankle plantar flexion 5/5; EHL 5/5 Results & Data Results & Data Laboratory Results . Laboratory Results - last 24 hr 03/06/25 03/06/25 03/07/25 16:00 16:58 07:29 WBC 7.92 5.59 RBC 4.38 4.11 L Hgb 13.9 13.0 Hct 40.6 37.2 MCV 92.7 90.5 MCH 31.7 31.6 MCHC 34.2 34.9 RDW Std Deviation 45.4 44.1 RDW Coeff of Camron 13.2 13.2 Plt Count 272 250 MPV 8.7 L 8.9 L Immature Gran % (Auto) 0.3 Neut % (Auto) 64.0 Lymph % (Auto) 22.0 [place] % (Auto) 7.7 Eos % (Auto) 5.1 Baso % (Auto) 0.9 Neut # (Auto) 5.08 Lymph # (Auto) 1.74 [place] # (Auto) 0.61 H Eos # (Auto) 0.40 Baso # (Auto) 0.07 Immature Gran # (Auto) 0.02 ESR 58 H PT 10.7 INR 1.0 APTT 25 PTT Ratio 0.9 Sodium 138 139 Potassium 3.7 3.8 Chloride 101 106 Carbon Dioxide 30 28 Anion Gap 7 5 BUN 17 13 Creatinine 0.82 0.59 L Est Cr Clr Drug Dosing 64.3 87.6 eGFR 81.84 103.11 BUN/Creatinine Ratio 20.7 H 22.0 H Glucose 133 H 106 H Calcium 10.6 H 9.6 Total Bilirubin 0.5 AST 19 ALT 11 Alkaline Phosphatase 55 Troponin I High Sens 4.4 C-Reactive Protein 2.47 H Total Protein 8.4 H Albumin 4.6 Globulin 3.8 Albumin/Globulin Ratio 1.2 Lipase 39 Procalcitonin < 0.02 Urine Color Yellow Urine Appearance Clear Urine pH 6.0 Ur Specific [place] 1.006 Urine Protein Negative Urine Glucose (UA) Negative Urine Ketones Negative Urine Blood 1+ H Urine Nitrite Negative Urine Bilirubin Negative Urine Urobilinogen Negative Ur Leukocyte Esterase Trace H Urine WBC (Auto) 0-5 Urine RBC (Auto) 0-2 U Hyaline Cast (Auto) 0-2 U Epithel Cells (Auto) 0-2 Urine Bacteria (Auto) None Seen Diagnostic Findings Thoracic Spine MRI 03/06/25 16:12 EXAM: MR thoracic spine wo/w con CLINICAL HISTORY: Mid chest and Mid back pain TECHNIQUE: Different pulse sequences were performed in different planes for the thoracic spine without and with contrast. 6 ml Gadavist was injected intravenously without complications. Images were sent through PACS for diagnostic interpretation. COMPARISON: CR study dated 12/15/2022, and CT dated 03/02/2025. FINDINGS: Preserved physiological kyphosis. There is no obvious spondylolysis or listhesis. Altered signals of the T3, T4, T5, T6, T7, T8, T9 and T10 vertebral bodyExhibiting low signals on T1 WI and bright signals on T2 on STIR WI.With appreciable enhancement after Gd-DTPA injection, also delineating paravertebral enhancement, most appreciated on the right side. Adjacent to the right upper ribs. Enhanced pedicles and lamina are also noted. Multiple discrete foci are noted at the Posterior ribs. The multiplicity and signal characteristics are highly suggestive of marrow replacement disorder, e.g., metastatic disease. Further workup is recommended to justify this possibility. Review of the prior CT study for the chest shows Bilateral dense breast parenchyma, More on the left side with macrocalcifications. Matches the given history of the underlying neoplastic process. Correlation with PET/CT is recommended. The scanned intervertebral discs show variable degrees of degeneration, denoted by low signal intensity on T2 WI with a relative reduction of their heights. Left nephrectomy. Level by Level analysis: T1-T2: There is no focal disc pathology, central canal stenosis, or neural foraminal stenosis. T2-T3: There is no focal disc pathology, central canal stenosis, or neural foraminal stenosis. T3-T4: There is a 2.5 mm annular bulge indenting the anterior subarachnoid space, compromising the subarticular recesses and neural foramina with impingement of the emerging nerve roots. T4-T5: There is no focal disc pathology, central canal stenosis, or neural foraminal stenosis. T5-T6: There is no focal disc pathology, central canal stenosis, or neural foraminal stenosis. T6-T7: There is no focal disc pathology, central canal stenosis, or neural foraminal stenosis. T7-T8: There is A 3.2 mm annular bulge indenting the anterior subarachnoid space, compromising the subarticular recesses with impingement of the emerging nerve roots. T8-T9: There is no focal disc pathology, central canal stenosis, or neural foraminal stenosis. T9-10: There is no focal disc pathology, central canal stenosis, or neural foraminal stenosis. T10-T11: There is no focal disc pathology, central canal stenosis, or neural foraminal stenosis. T11-12: There is no focal disc pathology, central canal stenosis, or neural foraminal stenosis. The thoracic spinal cord appears normal, with no evidence of an abnormal signal. Paravertebral soft tissues appear normal. IMPRESSION: 1. Altered signals of the T3, T4, T5, T6, T7, T8, T9 and T10 vertebral bodies, with imaging features and pattern of enhancement also delineating paravertebral enhancement, most appreciated on the right side. Adjacent to the right upper ribs. Enhanced pedicles and lamina are also noted. Multiple discrete foci are noted at the posterior ribs. The multiplicity and signal characteristics are highly suggestive of marrow replacement disorder, e.g., metastatic disease. Further workup is recommended to justify this possibility. 2. Review of the prior CT study for the chest shows Bilateral dense breast parenchyma, More on the left side with macrocalcifications. Matches the given history of the underlying neoplastic process. 3. Correlation with PET/CT is recommended. 4. Spondylodegenerative thoracic disc disease. 5. Left nephrectomy. 6. T3-T4: There is a 2.5 mm annular bulge indenting the anterior subarachnoid space, compromising the subarticular recesses and neural foramina with impingement of the emerging nerve roots. 7. T7-T8: There is A 3.2 mm annular bulge indenting the anterior subarachnoid space, compromising the subarticular recesses with impingement of the emerging nerve roots. 8. The comparison matches the CT findings. Electronically signed by Familia Duncan 03-06-2025 7:48 PM PG Care Time/CCT Total # of Minutes Spent Total Time Spent with Patient: Total time spent is greater than 50% in coordination of care (as documented) at patient's floor/unit and/or counseling patient: [place] [address] IN/OBS CONSULT LVL 5,80M Patient Type New Medical Decision Making High Complexity Diagnoses Acute right-sided thoracic back pain M54.6 Chronicity: acute Back pain laterality: right Abnormal magnetic resonance imaging of thoracic spine R93.7 History of left breast cancer Z85.3 (1) Thoracic back pain Chronicity: acute Back pain laterality: right Qualified Code(s): M54.6 - Pain in thoracic spine
[2025-03-07] MEDS ORDERED: HYDROmorphone INJ 1 MG/ML SYRINGE IV PRN (11:01)
[2025-03-07] MEDS ORDERED: ONDANSETRON INJ 2 MG/ML 2 ML VIAL IV PRN (11:02)
[2025-03-07] MEDS ORDERED: methylPREDNISolone 10 mg/mL (For Ped Dose < 7mg) IV SCH (11:15)
[2025-03-07] MEDS: HYDROmorphone INJ 1 MG/ML SYRINGE IV STA (11:18)
[2025-03-07] MEDS: methylPREDNISolone 60 MG in SYRINGE 0 ML IV SCH (12:36)
--- NOTE | 2025-03-07 13:32 | Hospitalist Progress Note ---
Date of Service March 07, 2025 Assessment & Plan (1) Intractable pain: Plan: As needed intravenous Dilaudid ordered. Suspected metastatic disease to the thoracic spine. Oncology consultation requested. She has a history of breast cancer (2) Abnormal magnetic resonance imaging of thoracic spine: Plan: Suspected metastatic disease involving T3-T10 vertebral bodies. Oncology and radiation oncology consultation is requested. (3) History of breast cancer: Plan: Dating back nearly 10 years. (4) UTI (urinary tract infection): Plan: Recent diagnosis of E. coli and Pseudomonas UTI. She is currently on oral Keflex therapy Plan To be determined Admission and Anticipated Discharge Date Admission Date: March 06, 2025 Subjective Progressively worsening back pain in the thoracic region for the past month. MRI scan of the T-spine reveals what appears to be metastatic disease involving the vertebral bodies of T3-T10. Oncology consultation and radiation oncology consultation requested and pending. Orthopedic spine consultation noted. Parenteral steroid therapy has been started. Will use parenteral narcotics for pain control measures. Will arrange thoracic spine biopsy if requested by oncology. She has a history of breast cancer and current situation likely represents metastatic disease. Will use intravenous Dilaudid for pain. The patient was told that any type of narcotic medication can cause nausea however. Apparently she did not tolerate morphine in the past due to nausea Review of Systems 2 Review of Systems: Constitutionalno fever or chills ENTno blurred vision, no double vision, no epistaxis, no sore throat Respiratoryno cough, no wheezing, no shortness of breath Cardiacno palpitations, no chest pain, no syncope Dirk nausea, vomiting, diarrhea, melena, hematochezia GUno urinary retention, no urinary incontinence, no dysuria, no hematuria Musculoskeletalmid back pain which has been constant and progressive for at least 1 month. No injury Skinno bruising, no rashes, no pruritus Neurono isolated weakness, no paresthesia, no weakness Psychno depression, no anxiety Physical Exam 2 Physical Exam: General-alert and oriented x3, no fever, no chills HEENT-head atraumatic and normocephalic, pupils equal and reactive to light, extraocular muscles intact Neck-no lymphadenopathy or thyromegaly, trachea midline Chest-clear to auscultation. No rales, wheezing or rhonchi Cardiac-regular rate and rhythm, normal S1 and S2 Abdomen-normal bowel sounds, no hepatosplenomegaly Musculoskeletaltenderness over the thoracic spine without overlying erythema Extremities-no cyanosis, clubbing, or edema Neuro-cranial nerves II through XII intact, motor and sensory function within normal limits, strength symmetrical, no focal deficits Psych-normal affect, normal mood Results & Data Results & Data Vital Signs (Past 12 Hours) Vital Signs Temp Pulse Pulse Resp BP Pulse Ox O2 Del Method 03/07/25 13:09 36.4 C L 74 17 133/80 94 Room Air 03/07/25 07:31 36.5 C 80 16 134/90 94 Room Air 03/07/25 06:18 77 151/93 H Laboratory Results 03/07/25 07:29 03/07/25 07:29 PG Care Time/CCT Total # of Minutes Spent Total Time Spent with Patient: Total time spent is greater than 50% in coordination of care (as documented) at patient's floor/unit and/or counseling patient: Coding Level of Care Code 34219 SUB INP/OBS CARE 3/50MIN Diagnoses Intractable pain R52 Abnormal magnetic resonance imaging of thoracic spine R93.7 History of breast cancer Z85.3 UTI (urinary tract infection) N39.0
--- NOTE | 2025-03-07 13:34 | Radiation OncologyConsultation ---
Date of Consultation March 07, 2025 Assessment & Plan (1) Thoracic back pain: (2) Breast cancer: Plan ATTENDING ADDENDUM Assessment: Ms. Whyte is a 59-year-old female who presents with a history of early-stage left breast cancer treated with surgery followed by radiation therapy in 2017. The patient then received 7 years of adjuvant tamoxifen. More recently, the patient did present with back pain. Ultimately, the patient has been admitted to the hospital after recently presenting to the emergency room and undergoing an MRI of the thoracic spine which potentially reveals metastatic disease to the spine. The patient has been evaluated by orthopedic spine who h as not recommending any urgent surgical intervention and has recommended consideration of biopsy by interventional radiology to confirm tissue diagnosis. Currently, the patient's pain is better controlled with pain medications. We are now seeing the patient to discuss overall management and radiation therapy. Recommendation: Patient should undergo a biopsy of thoracic spine to confirm presence of metastatic disease. In the outpatient setting, PET/CT scan could be useful to identify any other areas of metastatic disease that could be easier to biopsy versus thoracic spine. Plan: 1. Pursue biopsy to confirm tissue diagnosis. Interventional radiology and/or orthopedic spine should be considered for biopsy. 2. PET/CT scan can be considered in the outpatient setting to better identify another lesion to biopsy to confirm tissue diagnosis. 3. Palliative radiation therapy may be considered if patient does have confirmed tissue diagnosis of metastatic breast cancer to spine. 4. Patient should be seen by medical oncology in the outpatient setting. 5. Continue current pain management as per primary medical team. 6. We will continue to follow the patient and document as needed. 7. Patient and authorized individuals are encouraged to call us with any further questions or concerns. History of Present Illness Reason for Consultation: Back pain possible bone metastasis. Requesting Physician: Kathie Ivy DO Attending Physician: Esteban Arrieta MD History of Present Illness 02/02/2017. Bilateral diagnostic mammogram performed due to right nipple discharge. No obvious mammographic or sonographic abnormalities. A spiculated mass with architectural distortion was seen at 1:00 in the left breast. 02/03/2017. Status post ultrasound-guided core needle biopsy showing invasive ductal carcinoma, grade 1, ER positive, KS positive and HER2/karen negative by FISH. 02/19/2017. Status post bilateral breast MRI. Spiculated 1.6 cm mass left posterior upper outer quadrant region consistent with biopsy-proven malignancy. No MRI evidence of malignancy was seen elsewhere. 02/26/2017. Status postlumpectomy with sentinel lymph node biopsy. 2 x 1.8 cm grade 1 invasive mammary carcinoma with no specific type. Low-grade DCIS. 2 sentinel lymph nodes were negative for metastasis. 02/26/2017. Oncotype Dx score was 16. 03/18/2017. Reexcision of multiple margins including posterior lateral deep margin. All final margins negative. 06/04/2017. Status post completion of radiation therapy she received 51.3 Gy. Hypofractionation. 2016. Lumbar spine x-ray. Multiple degenerative disc changes. 03/26/2020. Bilateral breast MRI. Benign. 2021. Right upper lobe lung nodule. Stable. 11/2022. X-rays of thoracic and lumbar spine. Degenerative changes. 09/11/2024. Bilateral breast MRI. No significant interval change. No MRI evidence of malignancy in the breast. A 1 year screening mammogram and breast MRI is recommended. 11/27/2024. Bilateral screening mammogram. There is no mammographic evidence of malignancy. A 1 year screening mammogram is recommended. BI-RADS Category 2 benign. 12/04/2024. Medical oncology follow-up (Kim Florian, nurse practitioner). Patient continues on her routine surveillance. Will have bilateral breast MRI July 2025. Mammography November 2025. Continue DEXA scanning. Continue calcium and vitamin D. Pulmonary nodule stable for greater than 2 years. No further surveillance. 03/01/2025. Abdominal ultrasound ordered by primary care. 1. No evidence of any anterior abdominal hernia defect on given images. 2. If clinically warranted, cross-sectional imaging is suggested for further detailed evaluation. 03/02/2025. Patient presented to the emergency room due to right chest pain radiating to her back. 03/02/2025. CT to rule out PE. 1. No evidence of pulmonary bleeding. 2. Mild atherosclerotic changes of the aorta and its branches. Ectatic ascending aorta. 3. Bilateral basal pulmonary atelectasis. Right apical pulmonary nodule. 03/02/2025. CT of the abdomen and pelvis. 1. 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 Correlate with operative history. 2. Liver and right renal tiny cysts. 3. Congested left gonadal vein. 03/06/2025. MRI of the thoracic spine. 1. Altered signals of the T3, T4, T5, T6, T7, T8, T9 and T10 vertebral parish dies,with imaging features and pattern of enhancement also delineating paravertebral enhancement, most appreciated on the right side. Adjacent to the right upper ribs. Enhanced pedicles and lamina are also noted. Multiple discrete foci are noted at the posterior ribs. The multiplicity and signal characteristics are highly suggestive of marrow replacement disorder, e.g., metastatic disease. Further workup is recommended to justify this possibility. 2. Review of the prior CT study for the chest shows Bilateral dense breast parenchyma, More on the left side with macrocalcifications. Matches the given history of the underlying neoplastic process. 3. Correlation with PET/CT is recommended. 4. Spondylodegenerative thoracic disc disease. 5. Left nephrectomy. 6. T3-T4: There is a 2.5 mm annular bulge indenting the anterior subarachnoid space, compromising the subarticular recesses and neural foramina with impingement of the emerging nerve roots. 7. T7-T8: There is A 3.2 mm annular bulge indenting the anterior subarachnoid space, compromising the subarticular recesses with impingement of the emerging nerve roots. 03/07/2025. Radiation oncology consultation (Jody SHIELDS/Alvarado Celestin MD). Patient was hospitalized for intractable back pain. She began having issues in December. She does have a previous history of chronic back pain previously in the lumbar spine region. Upon arrival to the emergency room she had significant pain she gave a pain level of 7 out of 10. Reviewing the emergency room notes she did have radiation of the pain to the anterior chest. CT for PE was negative. In general her appetite has been good. Her weight is stable. She denies any issues with chronic fatigue. She has had regular follow-up visits. She is up-to-date on mammography. Due to the severity of the pain she was admitted for further evaluation and treatment. Thoracic spine imaging has shown possibility of metastatic disease with recommendation of PET/CT. She has been seen by o rthopedics. There was recommendation for IR guided biopsy. Today her pain is controlled when sitting still. Pain will increase with movement. Allergies Allergy/AdvReac Type Severity Reaction Status Date / Time aloe Allergy Mild Rash Verified 12/14/24 07:30 morphine Allergy Mild GI Verified 12/14/24 07:30 SYMPTOMS - nausea Home Medications Medication Instructions Recorded Confirmed Type cephalexin 500 mg capsule 500 mg PO BID 7 days #14 caps 03/02/25 03/06/25 Rx cyclobenzaprine 5 mg tablet 5 mg PO Q8H PRN muscle spasm #15 03/02/25 03/06/25 Rx tabs Patient History Medical History Metatarsalgia of left foot De Quervain's tenosynovitis, left Fracture of fifth metatarsal bone of left foot Right renal stone Trigger finger Hematuria 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 completed Arimidex therapy May 2017-Nov 2022 Breast cancer (02/03/17) "Development of a white nipple discharge on the right breast Status post abnormal left breast mammogram 02/02/2017 Status post core needle biopsies 02/03/2017 revealing invasive ductal carcinoma grade 1 Estrogen receptor was positive, progesterone receptor positive, and HER-2/karen negative Status post partial mastectomy and sentinel lymph node biopsy 02/26/2017 Stage pT1c pN0 positive lateral deep margin Status post reexcision 03/18/2017, benign Oncotype DX score of 16 Status post completion of radiation therapy 06/04/2017. She received 5130 cGy utilizing hypo-fractionation." On 04/14/17 12:18 Tamika Vera wrote "Development of a white nipple discharge on the right breast Status post abnormal left breast mammogram 02/02/2017 Status post core needle biopsies 02/03/2017 revealing invasive ductal carcinoma grade 1 Estrogen receptor was positive, progesterone receptor positive, and HER-2/karen negative Status post partial mastectomy and sentinel lymph node biopsy 02/26/2017 Stage pT1c pN0 positive lateral deep margin Status post reexcision 03/18/2017, benign Oncotype DX score of 16 " Osteoarthritis Anemia Surgical History S/P tubal ligation History of dilatation and curettage History of kidney surgery left kidney stent placed, then later kidney removed History of colonoscopy History of left breast biopsy malignant History of wisdom tooth extraction History of left nephrectomy (~2010) History of lumpectomy of left breast Secondary Low grade DCIS, invasive mammary carcinoma, 02/26/2017 H/O tubal ligation S/P left knee arthroscopy Family History Mother COPD (chronic obstructive pulmonary disease) Hypertension Asthma Diabetes Father Stroke, Onset Age: 57 Brother Diabetes Brother Myocardial infarction, Onset Age: 58 Other No family history of adverse response to anesthesia Denies family history of Ovarian cancer Prostate cancer Breast cancer Colorectal cancer Social History Smoking Status: Former smoker Tobacco Type: Cigarettes Age Started Using Tobacco: 14; Age Quit Using Tobacco: 46; packs per day: 1; Second Hand Exposure: Yes; Do You Dip or Chew Tobacco: No; Hx Alcohol Use: Yes Alcohol type: hard liquor Alcohol Intake Frequency: Monthly or Less Hx Substance Use: No Preferred Language: Bulgarian Communication Ability: Effective Visual Impairment: No Limitations Hearing Ability: Normal Supervisor Hard Candy Required: No Beliefs That Will Affect Care: None marital status: Current Living Situation: Spouse current occupational status: employed 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 Invasive ductal carcinoma of the left breast. Grade 1, ER positive, KS positive and HER2/karen negative. Stage IA. Oncotype Dx score of 16. Treatment: 02/26/2017. Status post lumpectomy with sentinel lymph node biopsy. 06/04/2017. Adjuvant radiation therapy. Hypofractionation. 20 fractions. 7 years of tamoxifen. Review of Systems Review of Systems: 13 point review of systems was completed . This was negative other than a mild headache which is going away. Physical Exam Constitutional: WD/WN, vitals as above Eyes: PERRL, conjunctivae normal, anicteric sclerae ENMT: Ears: no hearing impairment Neck: trachea midline, no thyromegaly Respiratory: normal respiratory effort, lungs clear to auscultation Cardiovascular: RRR, no murmur, no edema Gastrointestinal (Abdomen): normal bowel sounds, soft, nontender, no hepatos plenomegaly Musculoskeletal: Very mild tenderness to palpation along the paraspinous musculature and vertebral processes of the thoracic spine. Skin: no rashes, warm and dry Neurologic: Equal strength and coordination of upper and lower extremities. Psychiatric: A+Ox3, euthymic affect Results (Rad Onc) Imaging Studies: were reviewed and pertinent findings noted in HPI Time Spent Midlevel I spent [20] minutes in preparation for this follow up evaluation including reviewing all the clinical records, reviewing laboratory studies, pathology reports and imaging results. I spent [20] minutes with direct face to face interaction with the patient and/or family including performing a physical exam and answering all questions. I spent [15] minutes documenting this patient's visit. Attending I spent 15 minutes in preparation for this consultation including reviewing all the clinical records, reviewing laboratory studies, pathology reports and imaging results. I spent 15 minutes with direct face to face interaction with the patient and/or family including performing a physical exam and answering all questions. I spent 15 minutes documenting this patient's visit. PG Care Time/CCT Total # of Minutes Spent Total Time Spent with Patient: Total time spent is greater than 50% in coordination of care (as documented) at patient's floor/unit and/or counseling patient: Coding [place] [address] IN/OBS CONSULT LVL 4,60M Patient Type Established Medical Decision Making Moderate Complexity Diagnoses Thoracic back pain M54.6 Breast cancer C50.919
[2025-03-07 15:21] LABS: A calco-baum cmplx NotReported Not Detected (NotDetected); Bact fragilis Not Reported Not Detected (NotDetected); Blood Culture Id Panel PCR Panel Negative (NotDetected); C auris Not Reported Not Detected (NotDetected); Calbicans Not Reported Not Detected (NotDetected); Candida glabrata Not Reported Not Detected (NotDetected); Candida krusei Not Reported Not Detected (NotDetected); Cneoformans/gatti Not Reported Not Detected (NotDetected); Cparapsilosis Not Reported Not Detected (NotDetected); Ctropicalis Not Reported Not Detected (NotDetected); E cloacae compx Not Reported Not Detected (NotDetected); Efaecalis Not Reported Not Detected (NotDetected); Efaecium Not Reported Not Detected (NotDetected); Enterobacterales Not Reported Not Detected (NotDetected); Escherichia coli Not Reported Not Detected (NotDetected); H influenzae Not Reported Not Detected (NotDetected); K aerogenes Not Reported Not Detected (NotDetected); Koxytoca Not Reported Not Detected (NotDetected); Kpneumoniae grp Not Reported Not Detected (NotDetected); Lmonocyt Not Reported Not Detected (NotDetected); N meningitidis Not Reported Not Detected (NotDetected); P aeruginosa Not Reported Not Detected (NotDetected); Proteus spp Not Reported Not Detected (NotDetected); Salmonella spp Not Reported Not Detected (NotDetected); Staph lugdunensis Not Reported Not Detected (NotDetected); Staph spp. Not Reported Not Detected (NotDetected); Staphaureus Not Reported Not Detected (NotDetected); Staphepi Not Reported Not Detected (NotDetected); Stenmaltophilia Not Reported Not Detected (NotDetected); Strep agal(GrpB) Not Reported Not Detected (NotDetected); Strep pneum Not Reported Not Detected (NotDetected); Strep pyog (GrpA) Not Reported Not Detected (NotDetected); Strep spp Not Reported Not Detected (NotDetected)
--- NOTE | 2025-03-07 16:06 | Oncology Consultation ---
Date of Consultation March 07, 2025 Assessment & Plan (1) Thoracic back pain: Reviewed the patient's history till date, reviewed the patient's MRI which was performed on 03/06/2025. There are concerns that the patient has metastatic disease. At this point I would recommend a biopsy of one of the spinal bodies which has been affected by this disease process. Once we have the results of the biopsy I will have further recommendations as far as management is concerned. I appreciate the evaluation with my orthopedic spine colleagues; If our interventional radiology colleagues can obtain a IR guided biopsy of one of the vertebral bodies that would be helpful. Otherwise we would have to rely on our orthopedic spine colleagues. She will need an outpatient PET CT scan. (2) History of breast cancer: Reviewed prior history of breast cancer and all the adjuvant treatment that the patient received. At this point I am waiting for a biopsy-proven diagnosis to confirm whether we are dealing with metastatic disease to come up with a management plan for the patient. Continue pain management per our hospital internal medicine colleagues. Plan Thank you for this interesting oncological consult. A total of 60 minutes was spent in counseling, coronation care, review of prior records. Medical oncology will continue to follow the patient and make appropriate recommendations. History of Present Illness Reason for Consultation: breast cancer concern for metastatic disease Attending Physician: Esteban Arrieta MD History of Present Illness Diagnosis: Invasive ductal carcinoma of the left upper outer breast, grade 1, ER 100%, HI 5%, HER2 2+ (negative by FISH) Stage: Pathologic stage IA (pT1c pN0 cM0) OncotypeDX: Low risk (16, corresponding to a 10% ten-year risk of recurrence with tamoxifen alone) Current Treatment: Observation Adjuvant Arimidex, starting in May,, completed 2022 Disease history: 1. Underwent bilateral diagnostic mammogram with targeted US 02/02/17, after presenting with right nipple discharge. No obvious mammographic or sonographic abnormalities were identified to explain the right nipple discharge. However, a spiculated mass with architectural distortion was seen in the 1:00 far posterior left breast. A separate ill-defined hypoechoic shadowing area was seen in the 1:00 radian, but 9 cm from the nipple rather than 15 cm. 2. US-guided biopsy of the 1:00, 15 cm lesion on 02/03/17 revealed an invasive ductal carcinoma, grade 1, ER 100%, HI 5%, HER2 2+ by IHC but negative by FISH (ratio 1.1, copy number 2.5). 3. Bilateral breast MRI 02/19/17 revealed an ill-defined, minimally enhancing spiculated 1.6 cm mass in the left posterior upper outer quadrant/axillary tail region, consistent with the biopsy-proven malignancy. No MRI evidence of malignancy was seen elsewhere in either breast, including in the area of concern on her ultrasound. No etiology for the milky right breast discharge was noted either. 4. On 02/26/17, underwent lumpectomy with SLNB. Pathology revealed a 2 x 1.8 cm grade 1 invasive mammary carcinoma of no special type. Low-grade DCIS was also seen. No LVI or PNI were observed and two sentinel and one non-sentinel nodes were negative (0/3). However, the lateral deep margin was positive. 5. OncotypeDX was ordered on the 02/26 specimen, which revealed a low recurrence score (16, corresponding to a 10% ten-year risk of distant recurrence with tamoxifen alone). 6. On 03/18/17, she underwent re-excision of multiple margins, including the positive lateral deep margin. All final margins were negative. 7. Underwent hypofractionated RT (51.3 Gy), which she completed 06/04/17. 8. Annual bilateral breast MRI on 03/26/2020, this was read as BI-RADS 2, benign. the patient is a very pleasant 59-year-old woman who is well-known to our practice, has a prior history of breast cancer, treated with adjuvant hormonal therapy starting in May 2017, ending in 2022. Most lately, the patient has been admitted to the hospital with intractable back pain for which she was taking Tylenol and Flexeril. However her pain did not improve and she presented to the ER. Subsequently an MRI of the spine was performed which revealed possible metastatic disease. Medical oncology has been consulted to assist in management of this patient with prior history of stage I breast cancer which was treated with lumpectomy followed by adjuvant radiation followed by adjuvant endocrine therapy now presenting with possible metastatic disease. The patient continues to have pain and is currently requiring [id number] pain medications. She did have elevated calcium in the Allergies Allergy/AdvReac Type Severity Reaction Status Date / Time aloe Allergy Mild Rash Verified 12/14/24 07:30 morphine Allergy Mild GI Verified 12/14/24 07:30 SYMPTOMS - nausea Home Medications Medication Instructions Recorded Confirmed Type cephalexin 500 mg capsule 500 mg PO BID 7 days #14 caps 03/02/25 03/06/25 Rx cyclobenzaprine 5 mg tablet 5 mg PO Q8H PRN muscle spasm #15 03/02/25 03/06/25 Rx tabs Patient History Medical History Metatarsalgia of left foot De Quervain's tenosynovitis, left Fracture of fifth metatarsal bone of left foot Right renal stone Trigger finger Hematuria 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 completed Arimidex therapy May 2017-Nov 2022 Breast cancer (02/03/17) "Development of a white nipple discharge on the right breast Status post abnormal left breast mammogram 02/02/2017 Status post core needle biopsies 02/03/2017 revealing invasive ductal carcinoma grade 1 Estrogen receptor was positive, progesterone receptor positive, and HER-2/karen negative Status post partial mastectomy and sentinel lymph node biopsy 02/26/2017 Stage pT1c pN0 positive lateral deep margin Status post reexcision 03/18/2017, benign Oncotype DX score of 16 Status post completion of radiation therapy 06/04/2017. She received 5130 cGy utilizing hypo-fractionation." On 04/14/17 12:18 Tamika Vera wrote "Development of a white nipple discharge on the right breast Status post abnormal left breast mammogram 02/02/2017 Status post core needle biopsies 02/03/2017 revealing invasive ductal carcinoma grade 1 Estrogen receptor was positive, progesterone receptor positive, and HER-2/karen negative Status post partial mastectomy and sentinel lymph node biopsy 02/26/2017 Stage pT1c pN0 positive lateral deep margin Status post reexcision 03/18/2017, benign Oncotype DX score of 16 " Osteoarthritis Anemia Surgical History S/P tubal ligation History of dilatation and curettage History of kidney surgery left kidney stent placed, then later kidney removed History of colonoscopy History of left breast biopsy malignant History of wisdom tooth extraction History of left nephrectomy (~2010) History of lumpectomy of left breast Secondary Low grade DCIS, invasive mammary carcinoma, 02/26/2017 H/O tubal ligation S/P left knee arthroscopy Family History Mother COPD (chronic obstructive pulmonary disease) Hypertension Asthma Diabetes Father Stroke, Onset Age: 57 Brother Diabetes Brother Myocardial infarction, Onset Age: 58 Other No family history of adverse response to anesthesia Denies family history of Ovarian cancer Prostate cancer Breast cancer Colorectal cancer Social History Smoking Status: Former smoker Tobacco Type: Cigarettes Age Started Using Tobacco: 14; Age Quit Using Tobacco: 46; packs per day: 1; Second Hand Exposure: Yes; Do You Dip or Chew Tobacco: No; Hx Alcohol Use: Yes Alcohol type: hard liquor Alcohol Intake Frequency: Monthly or Less Hx Substance Use: No Preferred Language: Lithuanian Communication Ability: Effective Visual Impairment: No Limitations Hearing Ability: Normal Pc Network Technician Required: No Beliefs That Will Affect Care: None marital status: Current Living Situation: Spouse current occupational status: employed 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 Other Information That Helps Us Care for You: No Feels Safe at Home: Yes Safety Concerns: Feels Safe At This Time Childhood Exposure to Second-Hand Smoke: Yes Diet: regular Diet Comment: regular caffeine: Yes during the past year weight has: remained stable Dental Care, Regularly: Yes Physical Activity Frequency: Daily Seatbelt Use: always Sunscreen Use: Yes Assistive Devices: None Review of Systems Review of Systems: All systems reviewed & are unremarkable except as noted in HPI & below Constitutional: as per Subjective / HPI Eyes: as per Subjective / HPI Ear, Nose, Mouth, Throat: as per Subjective / HPI Respiratory: as per Subjective / HPI Cardiovascular: as per Subjective / HPI Gastrointestinal: as per Subjective / HPI Genitourinary: as per Subjective / HPI Musculoskeletal: as per Subjective / HPI Integumentary: as per Subjective / HPI Physical Exam Constitutional: WD/WN, vitals as above Eyes: PERRL, conjunctivae normal, anicteric sclerae ENMT: external ear and nose normal, oropharynx normal Neck: trachea midline, no thyromegaly Respiratory: normal respiratory effort, lungs clear to auscultation Cardiovascular: RRR, no murmur, no edema Gastrointestinal (Abdomen): normal bowel sounds, soft, nontender, no hepatosplenomegaly Musculoskeletal: no cyanosis or clubbing, extremities motor strength 5/5 Skin: no rashes, warm and dry Neurologic: patellar DTR's 2+ bilat, sensation intact Results & Data Vital Signs (Past 12 Hours) Vital Signs Temp Pulse Pulse Resp BP Pulse Ox O2 Del Method 03/07/25 13:09 36.4 C L 74 17 133/80 94 Room Air 03/07/25 07:31 36.5 C 80 16 134/90 94 Room Air 03/07/25 06:18 77 151/93 H (1) Thoracic back pain Chronicity: acute Back pain laterality: right Qualified Code(s): M54.6 - Pain in thoracic spine
[2025-03-07 20:24] VITALS: PULSE 82; TEMP 97.9
[2025-03-08 07:37] VITALS: BP 134/82; RESP 16; O2SAT 95
--- NOTE | 2025-03-08 11:01 | Discharge Summary ---
Discharge Summary Date of Service March 08, 2025 Principal Dx & Hospital Course #1 = Principal Diagnosis (1) Intractable pain: Her back pain is much improved with addition of parenteral steroids and as needed IV Dilaudid. Suspected metastatic disease to the thoracic spine. Orthopedic spine surgery consultation, radiation oncology consultation and oncology consultations appreciated. Thoracic spine biopsy is needed but IR informs me it cannot be done at this hospital. It will have to be set up as an outpatient elsewhere. She has a history of breast cancer, now with suspected metastatic disease to the thoracic spine. She will use oxycodone and on a as needed basis for any recurrent pain. She will continue with oral prednisone therapy at discharge, 20 mg twice daily. (2) Abnormal magnetic resonance imaging of thoracic spine: Suspected metastatic disease involving T3-T10 vertebral bodies. Orthopedic spine, oncology and radiation oncology consultations appreciated. Unfortunately, inpatient bone biopsy of the thoracic spine cannot be accomplished here. This will have to be done as an outpatient. (3) History of breast cancer: Dating back nearly 10 years. (4) UTI (urinary tract infection): Recent diagnosis of E. coli and Pseudomonas UTI. She is currently on oral Keflex therapy Plan Home today, March 08, with prednisone 20 mg twice daily and oxy codon 5 mg to be taken as needed for any recurrent pain. She will follow-up with her PCP and oncologist as soon as possible for referral for outpatient thoracic spine biopsy and definitive diagnosis and initiation of treatment. She was informed that 1 of 4 blood cultures is positive for gram-positive bacilli but this most likely represents a contaminant. Admission HPI Per Admitting Provider Sona Whyte is a 59-year-old female with history of invasive ductal carcinoma of the left breast status post lumpectomy and XRT status post Arimidex therapy returning to the ER with right back pain and right anterior chest pain. Patient was seen in the ER several days ago secondary to similar pain. Exam at that time consistent with posterior displacement of rib. Patient was discharged home with recommendations to complete conservative therapy with pain control, Lidoderm, muscle relaxers. Patient was contacted today due to Pseudomonas present in urine culture. Upon further questioning patient stated that her pain has continued and gotten somewhat worse. She has been having significant discomfort with deep breathing and minimal movement. No additional complaints Patient denies numbness/tingling/weakness Denies fever, chills, sweats, nausea, recent trauma, recent skin infection Discharge Exam General-alert and oriented x3, no fever, no chills HEENT-head atraumatic and normocephalic, pupils equal and reactive to light, extraocular muscles intact Neck-no lymphadenopathy or thyromegaly, trachea midline Chest-clear to auscultation. No rales, wheezing or rhonchi Cardiac-regular rate and rhythm, normal S1 and S2 Abdomen-normal bowel sounds, no hepatosplenomegaly Musculoskeletaltenderness over the thoracic spine without overlying erythema Extremities-no cyanosis, clubbing, or edema Neuro-cranial nerves II through XII intact, motor and sensory function within normal limits, strength symmetrical, no focal deficits Psych-normal affect, normal mood Discharge Plan Discharge Items Patient Disposition: Home - Self-Care Reason For Visit: BACK PAIN,CONCERN FOR METASTATIC DISEASE Discharge Diagnosis: Back pain due to suspected metastatic breast cancer to thoracic vertebrae Condition on Discharge: Good Activity: As commented below Activity Comment: Avoid overexertion or any heavy lifting Non-emergency contact: Primary Care Provider and Oncologist Call non-emergency contact if: you have any medication questions and your symptoms worsen Follow-up/Referrals: Yina Flanagan DO [Primary Care Provider] - 03/15/25 9:20 am (Hospital follow up scheduled March 15 at 9:20) Diet: Regular Addtl Attending Provider Instructions: Take prednisone 20 mg twice daily for now. Use oxycodone as needed for any recurrent pain. Follow-up with primary care doctor as soon as possible for referral for outpatient thoracic spine biopsy and also referral for follow-up with oncology, Dr. Carlson. Pending Studies at Discharge: Yes Studies:: Final blood culture results which probably represent a contaminant, 1 of 4 bottles positive for gram-positive bacilli Stand-Alone Forms: My [facility], Smoking Cessation Medications and DC Order Prescriptions: New prednisone 20 mg tablet 20 mg PO BID Qty: 30 0RF oxycodone 5 mg tablet 5 mg PO Q6H PRN (Reason: pain) Qty: 30 0RF Continued cephalexin 500 mg capsule 500 mg PO BID 7 Days Qty: 14 0RF cyclobenzaprine 5 mg tablet 5 mg PO Q8H PRN (Reason: muscle spasm) Qty: 15 0RF Discharge Orders: Discharge Order (Routine); Ordered 03/08/25 Ordered By: Esteban R. Berny Admission Data Admit Date/Time: 03/06/25 20:50 Attending Provider: Esteban Arrieta Admit Provider: Kathie Ivy Primary Care Provider: Yina Flanagan Other Providers: Kaity Shepard; Gianni Dominique; Kathie Ivy; Tamika Vera; Velasquez Celestin; Devonte Watt Hospital Stay Data Consultations 03/06/25 20:19 ED Decision to Admit Stat 03/06/25 20:50 Consult Oncology Routine Consult Orthopedic Spine Surgery Routine 03/07/25 09:58 Consult Radiation Oncology Routine Diagnostic Imagining Performed 03/06/25 16:12 MR thoracic spine wo/w con Stat Pending Results Patient Have Any Pending Studies at Discharge: No Discharge Instructions Given to Patient (Per Discharging Provider) Take prednisone 20 mg twice daily for now. Use oxycodone as needed for any recurrent pain. Follow-up with primary care doctor as soon as possible for referral for outpatient thoracic spine biopsy and also referral for follow-up with oncology, Dr. Carlson. Total Time Total Time Spent Total Time Spent (In Minutes): 45 minutes Coding Level of Care Code 79692 INP/OBS DISCH >30 MIN Diagnoses Intractable pain R52 Abnormal magnetic resonance imaging of thoracic spine R93.7 History of breast cancer Z85.3 UTI (urinary tract infection) N39.0
== END 2025-03-08 12:18 | disposition home or self-care (01) | DRG 844 ==
LOC: ED 15:23 → SUATTDRO 20:50 → 3W 20:50